=== PATIENT | male | born 1950 | race Caucasian/White ===

== ENCOUNTER 2017-10-29 18:02 | Inpatient (IN) | payer MEDICARE, MEDICAID ==
[2017-10-29] MEDS ORDERED: ONDANSETRON HCL IV 4 MG/2 ML VIAL IV ONE (18:12)
[2017-10-29] MEDS ORDERED: SODIUM CHLORIDE 0.9% 500 ML IV ONE (18:12)
--- NOTE | 2017-10-29 18:27 | Emergency Department Record ---
History of Present Illness - General Chief Complaint: Abdominal Pain Stated Complaint: DEHYDRATION/ABD PAIN Time Seen by Provider: 10/29/17 18:12 Source: Patient Mode of Arrival: EMS Limitations: No limitations - History of Present Illness Initial Comments: The patient is here due to AP for 4-5 days with abdominal distension. He has had nausea and did vomit twice a day ago. The patient denies any fever, chills, or dysuria but has had decreased urine output. The patient denies any hx of abdominal surgeries. MD Complaint: Abdominal pain Onset/Timin -: Days(s) Location: LUQ, RUQ, LLQ, RLQ Severity: Moderate Severity scale (1-10): 5 Quality: Aching Consistency: Constant Improves With: Nothing Worsens With: Nothing - Related Data Allergies Allergy/AdvReac Type Severity Reaction Status Date / Time No Known Drug Allergies Allergy Verified 10/29/17 18:14 Travel Screening - Travel/Exposure Within Last 30 Days Have you traveled within the last 30 days?: No - Travel/Exposure Within Last Year Have you traveled outside the [place] in the last year?: No - Additonal Travel Details Have you been exposed to anyone with a communicable illness?: No - Travel Symptoms Symptom Screening: None Review of Systems Constitutional: Denies: Chills, Fever Eyes: Denies: Eye discharge ENT: Denies: Congestion Respiratory: Denies: Cough, Dyspnea Cardiovascular: Denies: Arrhythmia Endocrine: Reports: Fatigue Gastrointestinal: Reports: Abdominal pain, Nausea, Vomiting. Denies: Diarrhea Genitourinary: Denies: Dysuria Musculoskeletal: Denies: Arthralgia, Back pain Skin: Denies: Bruising Past Medical History - SOCIAL HISTORY Smoking Status: Never smoker Alcohol Use: None Drug Use: None - RESPIRATORY Hx Respiratory Disorders: No - CARDIOVASCULAR Hx Hypertension: Yes - NEURO Hx Neuro Disorders: Yes Comment:: Surgery for brain abscess in 1976. - GI Comment:: Chronic constipation - Hx Genitourinary Disorders: No - ENDOCRINE Hx Endocrine Disorders: Yes Hx Diabetes: Yes (IDDM) Hx Thyroid Disease: Yes Comment:: Just started Levothyroxine on 01/10/14 - MUSCULOSKELETAL Hx Musculoskeletal Disorders: No - PSYCH Hx Psych Problems: No - HEMATOLOGY/ONCOLOGY Hx Hematology/Oncology Disorders: No Family Medical History Any Significant Family History?: Yes Hx Cancer: Father Hx Stroke: Mother Physical Exam - General General Appearance: Alert, Oriented x3, Cooperative, No acute distress - Head Head exam: Atraumatic, Normocephalic - ENT Throat exam: Normal inspection. negative: Tonsillar erythema, Tonsillar exudate - Neck Neck exam: Normal inspection, Full ROM. negative: Tenderness - Respiratory Respiratory exam: Normal lung sounds bilaterally. negative: Respiratory distress - Cardiovascular Cardiovascular Exam: Regular rate, Normal rhythm, Normal heart sounds - GI/Abdominal GI/Abdominal exam: Diminished bowel sounds, Distended, Tenderness. negative: Soft - Rectal Rectal exam: Heme (-) stool. negative: Decreased rectal tone, Fecal impaction - Extremities Extremities exam: Pedal edema. negative: Normal inspection - Neurological Neurological exam: Alert. negative: Motor sensory deficit Course Vital Signs 10/29/17 18:06 Temperature 98.2 F Pulse Rate 91 H Respiratory 16 Rate Blood Pressure 129/69 Pulse Ox 97 - Reevaluation(s) Reevaluation #1: The patient is doing a lot better at this time. His pain is much improved and he is no longer nauseated. He clearly had a bladder outlet obstruction and did have about 3000cc's of urine removed from the catheter. On exam his abdomen is much more soft and less distended but not quite back to normal. 10/29/17 20:10 Reevaluation #2: The patient is still doing better but is still mildly distended. He appears to have a colonic ileus on CT and a full rectum. I did discuss the issues with Dr. Morejon and he does accept the patient for admission for IV fluid therapy and further evaluation. 10/29/17 20:50 Medical Decision Making - Data Complexity MDM Data: Labs Ordered and/or Reviewed, X-Ray Ordered and/or Reviewed - Lab Data Result diagrams: 10/29/17 19:20 10/29/17 19:20 - Radiology Data Radiology results: Report reviewed (CT: Obstipation, O/W neg.) Disposition Disposition: Admit Clinical Impression: Renal failure Qualifiers: Renal failure chronicity: acute Acute renal failure type: unspecified Qualified Code(s): N17.9 - Acute kidney failure, unspecified Disposition: Still a Patient at [facility] Decision to Admit: Admit from ER Decision to Admit Date: 10/29/17 Decision to Admit Time: 20:51 Accepting Physician: Jean-Pierre Time Discussed w/Accepting Physician: 20:51 Condition: (2) Stable Forms: Patient Portal Access Time of Disposition: 20:51 Quality - Quality Measures Quality Measures: N/A - Blood Pressure Screening View Details: Yes Does Patient Have Any of the Following: No Blood Pressure Classification: Pre-Hypertensive BP Reading Systolic Measurement: 129 Diastolic Measurement: 69 Screening for High Blood Pressure: < Pre-Hypertensive BP, F/U Documented > [ [id number]] Pre-Hypertensive Follow-up Interventions: Referral to alternative/primary care provider.
[2017-10-29 19:27] LABS: HEMATOCRIT 35.1 % (42.0-52.0); HEMOGLOBIN 11.1 gm/dl (14.0-18.0); MEAN CELL VOLUME 94.4 fl (81-97); MEAN CORPUSCULAR HEMOGLOBIN 29.8 pg (27-33); MEAN CORPUSCULAR HGB CONC 31.6 g/dl (32-36); MEAN PLATELET VOLUME 10.8 fl (7.4-10.4); PLATELET COUNT 167 K/uL (130-400); RED BLOOD COUNT 3.72 M/uL (4.40-5.70); RED CELL DISTRIBUTION WIDTH 12.9 % (11.5-14.5); WHITE BLOOD COUNT W/O DIFF 13.1 K/uL (4.2-12.2)
[2017-10-29 19:28] LABS: URINE APPEARANCE CLEAR; URINE BILIRUBIN NEGATIVE (NEGATIVE); URINE BLOOD NEGATIVE (NEGATIVE); URINE COLOR YELLOW; URINE KETONE NEGATIVE (NEGATIVE); URINE LEUKOCYTE ESTERASE NEGATIVE (NEGATIVE); URINE NITRITE NEGATIVE (NEGATIVE); URINE PROTEIN NEGATIVE (NEGATIVE); URINE UROBILINOGEN 0.2 E.U./dL (0.20 - 1.00)
[2017-10-29 19:40] LABS: BLOOD UREA NITROGEN 41 mg/dL (8-23); CREATININE 1.7 mg/dL (0.7-1.2); EST GLOMERULAR FILTRATION RATE 43 mL/min
[2017-10-29 19:41] LABS: TOTAL PROTEIN 6.4 g/dL (6.6-8.7)
[2017-10-29 19:43] LABS: GLUCOSE,RANDOM 155 mg/dL (74-109)
[2017-10-29 19:45] LABS: ALT/SGPT 22 U/L (<41); AST/SGOT 24 U/L (10.0-50.0)
[2017-10-29 19:46] LABS: ALKALINE PHOSPHATASE 87 U/L (40-129); BILIRUBIN,DIRECT < 0.2 mg/dL (0-0.3); LIPASE 8 U/L (13-60)
[2017-10-29] MEDS ORDERED: MAGNESIUM CITRATE 296 ML BTL PO ONE (20:43)
[2017-10-29] MEDS ORDERED: ONDANSETRON HCL IV 4 MG/2 ML VIAL IVP PRN (22:32)
[2017-10-29] MEDS ORDERED: 0.9 % SODIUM CHLORIDE 1000ML 1,000 ML IV PRN (22:32)
[2017-10-29] MEDS ORDERED: NOVOLOG FLEXPEN (INSULIN ASPART) 100 UNITS/ML SQ SCH (22:32)
[2017-10-29] MEDS: ASPIRIN 81 MG TABEC PO SCH (23:38)
[2017-10-30 06:21] LABS: HEMATOCRIT 32.7 % (42.0-52.0); HEMOGLOBIN 10.6 gm/dl (14.0-18.0); MEAN CELL VOLUME 94.8 fl (81-97); MEAN CORPUSCULAR HEMOGLOBIN 30.7 pg (27-33); MEAN CORPUSCULAR HGB CONC 32.4 g/dl (32-36); MEAN PLATELET VOLUME 11.7 fl (7.4-10.4); PLATELET COUNT 146 K/uL (130-400); RED BLOOD COUNT 3.45 M/uL (4.40-5.70); RED CELL DISTRIBUTION WIDTH 12.7 % (11.5-14.5); WHITE BLOOD COUNT W/O DIFF 12.3 K/uL (4.2-12.2)
[2017-10-30 06:39] LABS: CREATININE 1.4 mg/dL (0.7-1.2)
[2017-10-30] MEDS: LEVOTHYROXINE SODIUM 25 MCG TABLET PO SCH (06:42)
[2017-10-30] MEDS ORDERED: NOVOLOG FLEXPEN (INSULIN ASPART) 100 UNITS/ML SQ SCH (08:00)
[2017-10-30] MEDS ORDERED: MAGNESIUM CITRATE 296 ML BTL PO ONE (09:00)
--- NOTE | 2017-10-30 09:14 | History & Physical ---
History of Present Illness - Date of Service Date of Service for History & Physical: 10/30/17 - History of Present Illness Admitting Diagnosis: 1. Acute Renal Failure with Bladder Outlet Obstruction. History of Present Illness: Mr. Guerrero is a 66 y/o diabetic patient who presented with complaint of abdominal pain, distension and difficulty having a bowel movement for 1 week. The patient says that he usually uses the rest room daily but over the past few days and his abdomen became increasingly painful. He also has a history of urinary retention but denies any symptoms of pain or burning. The patient is blind and lives with his elderly mother but says that he his somewhat independent but gets help from his younger brother who also lives there. He is a poor historian and his On arrival to the ED a CT of the abdomen was done which revealed large amount of fecal matter but no other acute process. The patient was straight catheterized in the ED and 3 liters of urine was obtained. No fecal occult blood was noted and urinalysis was negative for infection. Travel Screening - Travel/Exposure Within Last 30 Days Have you traveled within the last 30 days?: No - Travel/Exposure Within Last Year Have you traveled outside the [place] in the last year?: No - Additonal Travel Details Have you been exposed to anyone with a communicable illness?: No - Travel Symptoms Symptom Screening: None Review of Systems Constitutional: Denies: Chills, Fever Eyes: Denies: Eye discharge ENT: Denies: Congestion Respiratory: Denies: Cough, Dyspnea Cardiovascular: Denies: Arrhythmia Endocrine: Reports: Fatigue Gastrointestinal: Reports: Abdominal pain, Nausea, Vomiting. Denies: Diarrhea Genitourinary: Denies: Dysuria Musculoskeletal: Denies: Arthralgia, Back pain Skin: Denies: Bruising Past Medical History - SOCIAL HISTORY Smoking Status: Never smoker Alcohol Use: None Drug Use: None - RESPIRATORY Hx Respiratory Disorders: No - CARDIOVASCULAR Hx Abnormal EKG: No Hx Cardiac Cath: No Hx Chest Pain: No Hx CHF: No Hx Deep Vein Thrombosis: No Hx Edema: No Hx Heart Attack: No Hx Hypertension: Yes Hx Hypotension: No Hx Irregular Heartbeat: No Hx Palpitations: No Hx Pacemaker/Defib: No Hx Vascular Disease: No - NEURO Hx Neuro Disorders: Yes Hx Brain Tumor: Yes (abscess) Hx CVA: No Hx Dementia: No Hx Dizziness: Yes Hx Headaches: Yes Hx Neuropathy: No Hx Parkinson's Disease: No Hx Seizures: No Hx Speech Problem: No Hx TIA: No Comment:: Surgery for brain abscess in 1976. - GI Hx GI Disorders: Yes Hx Abdominal Pain: No Hx Celiac Disease: No Hx Crohn's Disease: No Hx Diverticulitis: No Hx GI Bleed: No Hx Reflux: No Hx Hepatitis/Jaundice: No Hx Hiatal Hernia: No Hx Irritable Bowel: No Hx Liver Disease: No Hx Nausea/Vomiting: No Hx Obstructive Bowel: No Hx Pancreatitis: No Hx Rectal Bleeding: No Hx Ulcer: No Hx Wt Loss/Wt Gain: No Hx of Polyps: No Comment:: Chronic constipation - Hx Genitourinary Disorders: Yes Hx Bladder Problem: Yes Hx Dialysis: No Hx Kidney Stones: No Hx Prostate Problems: Yes - ENDOCRINE Hx Endocrine Disorders: Yes Hx Diabetes: Yes (IDDM) Hx Thyroid Disease: Yes Comment:: Just started Levothyroxine on 01/10/14 - MUSCULOSKELETAL Hx Musculoskeletal Disorders: No - PSYCH Hx Psych Problems: No - HEMATOLOGY/ONCOLOGY Hx Hematology/Oncology Disorders: No Family Medical History Any Significant Family History?: Yes Hx Cancer: Father Hx Stroke: Mother H&P Meds/Allergies - Allergies Allergies: Allergies Allergy/AdvReac Type Severity Reaction Status Date / Time No Known Drug Allergies Allergy Verified 10/29/17 18:14 - Active Medications Active Medications: Current Medications Amlodipine Besylate (Norvasc) 5 mg PO DAILY [facility] Aspirin (Ecotrin (Ec)) 81 mg PO QHS [facility] Last Admin: 10/29/17 23:38 Dose: 81 mg Sodium Chloride () 1,000 mls @ 100 mls/hr IV .Q10H PRN PRN Reason: LARGE VOLUME IV Insulin Aspart (Novolog Flexpen) 6 unit SQ WMEALS [facility] Last Admin: 10/30/17 08:56 Dose: Not Given Insulin Detemir (Levemir Flextouch) 9 unit SQ BID [facility] Levothyroxine Sodium (Synthroid) 25 mcg PO DAILYTHY [facility] Last Admin: 10/30/17 06:42 Dose: 25 mcg Lisinopril (Zestril) 20 mg PO DAILY [facility] Non-Formulary Medication (Dutasteride [Avodart]) 0.5 mg PO QAM [facility] Ondansetron HCl (Zofran) 4 mg IVP Q4H PRN PRN Reason: NAUSEA Pantoprazole Sodium (Protonix Iv) 40 mg IV DAILY [facility] Tamsulosin HCl (Flomax) 0.4 mg PO DAILY [facility] Physical Exam - Vital Signs Vital Signs: Vital Signs - Last 24 Hrs Temp Pulse Pulse Resp BP BP BP 10/30/17 05:30 98.3 F 90 20 128/64 10/30/17 00:08 99.0 F 86 20 130/65 10/29/17 21:45 99.3 F 99 H 94 H 20 107/97 134/76 10/29/17 20:08 91 H 20 129/61 10/29/17 18:06 98.2 F 91 H 16 129/69 Pulse Ox 10/30/17 05:30 92 L 10/30/17 00:08 95 10/29/17 21:45 94 L 10/29/17 20:08 97 10/29/17 18:06 97 - General General Appearance: Alert, Oriented x3, Cooperative, No acute distress Limitations: No limitations - Head Head exam: Atraumatic, Normocephalic - ENT Throat exam: Normal inspection. negative: Tonsillar erythema, Tonsillar exudate - Neck Neck exam: Normal inspection, Full ROM. negative: Tenderness - Respiratory Respiratory exam: Normal lung sounds bilaterally. negative: Respiratory distress - Cardiovascular Cardiovascular Exam: Regular rate, Normal rhythm, Normal heart sounds - GI/Abdominal GI/Abdominal exam: Diminished bowel sounds, Distended, Tenderness. negative: Soft - Rectal Rectal exam: Heme (-) stool. negative: Decreased rectal tone, Fecal impaction - Extremities Extremities exam: Pedal edema. negative: Normal inspection - Neurological Neurological exam: Alert. negative: Motor sensory deficit Results - Labs Result Diagrams: 10/30/17 06:00 10/30/17 06:00 Labs Last 24 Hours: Laboratory Results - last 24 hr 10/29/17 10/29/17 10/29/17 19:20 19:20 19:20 WBC 13.1 H RBC 3.72 L Hgb 11.1 L Hct 35.1 L MCV 94.4 MCH 29.8 MCHC 31.6 L RDW 12.9 Plt Count 167 MPV 10.8 H Neutrophils % 64.0 Band Neutrophils % 0.0 Eosinophils % Not Reportable Basophils % Not Reportable Lymphocytes 6.0 L Monocytes 30.0 H Basophils 0.0 Eosinophil Count 0.0 Sodium 138 Potassium 4.3 Chloride 99 Carbon Dioxide 26.0 Anion Gap 13.0 BUN 41 H Creatinine 1.7 H Estimated GFR 43 POC Glucose Random Glucose 155 H Calcium 9.0 Total Bilirubin 0.30 Direct Bilirubin < 0.2 AST 24 ALT 22 Alkaline Phosphatase 87 Total Protein 6.4 L Albumin 4.0 Lipase 8 L TSH Urine Color Yellow Urine Appearance Clear Urine pH 6.0 Ur Specific [place] 1.020 Urine Protein Negative Urine Glucose (UA) 500 mg/dl H Urine Ketones Negative Urine Blood Negative Urine Nitrite Negative Urine Bilirubin Negative Urine Urobilinogen 0.2 Ur Leukocyte Esterase Negative 10/29/17 10/29/17 10/30/17 19:20 23:30 06:00 WBC 12.3 H RBC 3.45 L Hgb 10.6 L Hct 32.7 L MCV 94.8 MCH 30.7 MCHC 32.4 RDW 12.7 Plt Count 146 MPV 11.7 H Neutrophils % 54.0 Band Neutrophils % 0.0 Eosinophils % Not Reportable Basophils % Not Reportable Lymphocytes 8.0 L Monocytes 38.0 H Basophils 0.0 Eosinophil Count 0.0 Sodium Potassium Chloride Carbon Dioxide Anion Gap BUN Creatinine Estimated GFR POC Glucose 75 Random Glucose Calcium Total Bilirubin Direct Bilirubin AST ALT Alkaline Phosphatase Total Protein Albumin Lipase TSH 0.87 Urine Color Urine Appearance Urine pH Ur Specific [place] Urine Protein Urine Glucose (UA) Urine Ketones Urine Blood Urine Nitrite Urine Bilirubin Urine Urobilinogen Ur Leukocyte Esterase 10/30/17 06:00 WBC RBC Hgb Hct MCV MCH MCHC RDW Plt Count MPV Neutrophils % Band Neutrophils % Eosinophils % Basophils % Lymphocytes Monocytes Basophils Eosinophil Count Sodium 139 Potassium 3.6 Chloride 99 Carbon Dioxide 29.0 Anion Gap 11.0 BUN 37 H Creatinine 1.4 H Estimated GFR 54 POC Glucose Random Glucose 170 H Calcium 8.4 L Total Bilirubin Direct Bilirubin AST ALT Alkaline Phosphatase Total Protein Albumin Lipase TSH Urine Color Urine Appearance Urine pH Ur Specific [place] Urine Protein Urine Glucose (UA) Urine Ketones Urine Blood Urine Nitrite Urine Bilirubin Urine Urobilinogen Ur Leukocyte Esterase VTE H&P Assessment - Risk for VTE Risk for VTE: Yes Risk Level: Low Risk Assessment Date: 10/30/17 Risk Assessment Time: 09:16 VTE Orders Placed or Will Be Placed: Yes Plan - Inpatient Certification Inpatient Certification: Admit to inpatient care: Based on my medical assessment, after consideration of patient's risk factors (age, co-morbidities and patient presenting symptoms and acuity), I expect that this patient will remain in the hospital greater than or equal to two midnights and that the services needed warrant inpatient care because: Patient Risk Factors: Bladder obstruction. Ileus Estimated length of stay: 2-3 days The patient may reasonably be expected to be discharged or transferred to a hospital within 96 hours after admission to [facility]. Services needed: [] Post hospital care (if known): Urology, PCP I certify that my determination is in accordance with my understanding of Medicare requirements for reasonable and necessary inpatient services. 10/30/17 09:18 - Detailed Diagnosis and Plan (1) Bladder outflow obstruction Current Visit: Yes Status: Acute Base Code: N32.0 - BLADDER-NECK OBSTRUCTION Comment: 10/30/17: - abdominal distesntion/pain, UA: negative - maintain snider catheter, I/Os, trial of void after catheter removed. - resume Flomax 0.4mg daily for BPH (2) Ileus Current Visit: Yes Status: Acute Base Code: K56.7 - ILEUS, UNSPECIFIED Comment: 10/30/17: - abdominal distension and pain due to constipation. Fecal occult negative. - Ct abdomen: large amount of fecal matter, - IV fluids: Nacl 0.9% @ 75mL/hr, Mg citrate PRN. (3) Acute on chronic renal insufficiency Current Visit: Yes Status: Acute Base Code: N28.9 - DISORDER OF KIDNEY AND URETER, UNSPECIFIED; N18.9 - CHRONIC KIDNEY DISEASE, UNSPECIFIED Comment: 10/30/17: - bun/Cr 41/1.7 --> 37/1.4, likely due to bladder obstruction. - repeat electrolytes in the morning. - avoid nephrotoxic medeications. (4) Diabetes mellitus, type II Current Visit: Yes Status: Acute Base Code: E11.9 - TYPE 2 DIABETES MELLITUS WITHOUT COMPLICATIONS Comment: 10/30/17: - at home Lantus 9 units QHS, Novolog 6 units TIDAC, Lisinopril 20mg, ASA 81. Lantus 5 units, sliding scale insulin low dose. - check Hba1c and lipids with morning labs. - ADA diet, POC glucose AcHs. (5) HTN, goal below 140/80 Current Visit: Yes Status: Acute Base Code: I10 - ESSENTIAL (PRIMARY) HYPERTENSION Comment: 10/30/17: - BP at goal of < 140/80 - resume norvasc 5mg and Lisinopril 20mg daily. 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 (7) DVT prophylaxis Current Visit: Yes Status: Acute Base Code: [id number] - Comment: 10/30/17: - SCDs while in bed. - ambulation with assistance due to blindess. (8) Full code status Current Visit: Yes Status: Acute Base Code: Z78.9 - OTHER SPECIFIED HEALTH STATUS Comment: 10/30/17: - FULL CODE
[2017-10-30] MEDS: PANTOPRAZOLE SODIUM IV 40 MG VIAL IV SCH (09:56)
[2017-10-30] MEDS: AMLODIPINE BESYLATE 5MG TAB PO SCH (09:56)
[2017-10-30] MEDS: LISINOPRIL 20 MG TABLET PO SCH (09:56)
[2017-10-30] MEDS: TAMSULOSIN HCL 0.4 MG CAP.ER.24H PO SCH (09:56)
[2017-10-30] MEDS: LEVEMIR FLEXTOUCH 100 UNIT/ML INSULIN PEN SQ SCH ×2 (10:03→22:10)
[2017-10-30] MEDS: NOVOLOG FLEXPEN (INSULIN ASPART) 100 UNITS/ML SQ SCH ×2 (13:38→17:39)
[2017-10-30] MEDS ORDERED: 0.9 % SODIUM CHLORIDE 1000ML 1,000 ML IV PRN (19:14)
[2017-10-30] MEDS ORDERED: 0.9 % SODIUM CHLORIDE 1000ML 1,000 ML IV SCH (19:15)
[2017-10-30] MEDS: ASPIRIN 81 MG TABEC PO SCH (22:10)
[2017-10-31] MEDS: LEVOTHYROXINE SODIUM 25 MCG TABLET PO SCH (06:58)
[2017-10-31 07:22] LABS: HEMATOCRIT 32.7 % (42.0-52.0); HEMOGLOBIN 10.4 gm/dl (14.0-18.0); MEAN CELL VOLUME 95.3 fl (81-97); MEAN CORPUSCULAR HEMOGLOBIN 30.3 pg (27-33); MEAN CORPUSCULAR HGB CONC 31.8 g/dl (32-36); MEAN PLATELET VOLUME 11.5 fl (7.4-10.4); PLATELET COUNT 146 K/uL (130-400); RED BLOOD COUNT 3.43 M/uL (4.40-5.70); RED CELL DISTRIBUTION WIDTH 12.6 % (11.5-14.5); WHITE BLOOD COUNT W/O DIFF 10.6 K/uL (4.2-12.2)
[2017-10-31 07:36] LABS: BLOOD UREA NITROGEN 31 mg/dL (8-23); CREATININE 1.1 mg/dL (0.7-1.2); EST GLOMERULAR FILTRATION RATE > 60 mL/min; GLUCOSE,RANDOM 105 mg/dL (74-109)
--- NOTE | 2017-10-31 08:21 | CT SCAN REPORT ---
EXAM: EMERGENCY CT OF THE ABDOMEN AND PELVIS WITHOUT CONTRAST HISTORY: LOWER ABDOMINAL PAIN AND VOMITING FOR A WEEK, GENERALIZED WEAKNESS DEHYDRATION. TECHNIQUE: Axial CT scan of the abdomen and pelvis was performed without oral or IV contrast at the referring physician's request. Comparison: No prior CT of the abdomen or pelvis with which to compare. FINDINGS: There is some mild bibasilar streaky atelectasis or infiltrate. Prominent coronary artery calcification is evident. Mild dilatation of the lower esophagus, nonspecific. Borderline aneurysmal dilatation of the ascending aorta measuring up to about 4 cm in diameter. No pericardial effusion evident. The patient's arms are placed over the abdomen which creates considerable artifact limiting interpretation. There are questionably some tiny gallstones that are relatively noncalcified in the dependent portion of the gallbladder. No convincing evidence of acute cholecystitis, but if clinically warranted this could be further assessed with a gallbladder ultrasound. There are some central renal calcifications in the bilaterally. These are probably all renal arterial in nature with the possibility of these representing nonobstructing intrarenal calculi felt to be less likely. On this initial set of images the apparatus engineering technologist has not submitted images below the level of the mid pelvis. Apparently there are additional images obtained, but were not sent and once viewed, an addendum comparison report will be provided. At the time of this interpretation, the ureters can only be followed to the level of the mid pelvis. Slight prominence in caliber of both ureters, but no ureteral calculus seen in the visualized portion of the ureters. Evaluation of the bowel and viscera is extremely limited without oral or IV contrast. Given this limitation, no definite hepatic, splenic, adrenal, pancreatic, or renal mass identified. Calcification of the abdominal aorta, but no aneurysm evident. There is a large amount of stool in the visualized upper rectum and clinical correlation as to fecal impaction suggested. The tip of the cecum is not included on these images. Much of the colon is mildly distended by a combination of stool and air. The small bowel is relatively nondistended. No free intraperitoneal air or free intra peritoneal fluid evident. There is a small periumbilical anterior abdominal wall hernia containing adipose tissue, but no bowel. Small calcification in the subcutaneous tissues of the anterior abdominal wall may be the site of prior medicine injections, with small soft tissue densities in association with these calcifications as well. IMPRESSION: 1. LOWER PELVIS NOT INCLUDED ON THESE IMAGES, BUT THE BUSINESS OBJECTS REPORT DEVELOPER CONFIRMS THAT THERE ARE ADDITIONAL AXIAL IMAGES INCLUDING THE PELVIS THAT DID NOT GET SENT ACROSS FOR INTERPRETATION. ONCE OBTAINED, AN ADDENDUM REPORT WILL BE PROVIDED. 2. PROMINENT STOOL IN THE VISUALIZED UPPER RECTUM AND CLINICAL CORRELATION TO FECAL IMPACTION IS SUGGESTED. MODERATE DISTENTION OF THE COLON ELSEWHERE BY A COMBINATION OF STOOL AND AIR. RELATIVELY NONDISTENDED SMALL BOWEL. 3. 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 4. CORONARY ARTERY CALCIFICATION. 5. MILD DILATATION OF THE LOWER ESOPHAGUS. 6. CENTRAL RENAL CALCIFICATIONS PROBABLY RENAL ARTERIAL IN NATURE. 7. SMALL PERIUMBILICAL ANTERIOR ABDOMINAL WALL HERNIA CONTAINING ADIPOSE TISSUE , BUT NO BOWEL. ADDENDUM: The apparatus engineering technologist has now made available additional axial scans through the lower pelvis. These demonstrate prominent distention of the rectum with stool with the rectum measuring up to approximately 8.6 cm in transverse x 10.6 cm in AP diameter. Slight thickening of the rectal wall as well and the possibility of a developing stercoral colitis cannot be excluded. There is a Orr catheter in place within the urinary bladder. The bladder also has a thick walled appearance, but this may simply be due to incomplete distention. The cecum tip is now seen. The appendix is not well demonstrated without oral or IV contrast, but no appendicitis evident. JOB NUMBER: [id number] [facility]
--- NOTE | 2017-10-31 08:27 | CT SCAN REPORT ---
EXAM: CT OF THE BRAIN WITHOUT CONTRAST HISTORY: MENTAL STATUS CHANGE. TECHNIQUE: Sequential axial images were obtained from the foramen magnum to the vertex without contrast administration. Comparison: 2009. FINDINGS: The brain volume is normal. Large calcified right frontal parietal extraaxial lesion. There is at the site of patient's previous brain abscess. There is ventriculomegaly similar in appearance when compared to previous exams. There is encephalomalacia surrounding the large right extraaxial frontal parietal lesion. There is prosthetic left globe. There is radiopaque density in the right posterior globe. This may represent a foreign body. IMPRESSION: 1. LARGE CALCIFIED EXTRAAXIAL LESION IN THE RIGHT FRONTAL PARIETAL REGION. THIS MEASURES 6.2 X 2.8 CM. THERE IS SURROUNDING ENCEPHALOMALACIA. 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 2. VENTRICULOMEGALY. 3. PROSTHETIC LEFT GLOBE. PROBABLE RADIOPAQUE FOREIGN BODY IN THE RIGHT GLOBE. JOB NUMBER: [id number] MTDD
[2017-10-31] MEDS: NOVOLOG FLEXPEN (INSULIN ASPART) 100 UNITS/ML SQ SCH ×3 (09:22→19:10)
[2017-10-31] MEDS: TAMSULOSIN HCL 0.4 MG CAP.ER.24H PO SCH (10:58)
[2017-10-31] MEDS: PANTOPRAZOLE SODIUM IV 40 MG VIAL IV SCH (10:59)
[2017-10-31] MEDS: AMLODIPINE BESYLATE 5MG TAB PO SCH (10:59)
[2017-10-31] MEDS: LISINOPRIL 20 MG TABLET PO SCH (11:00)
[2017-10-31] MEDS: LEVEMIR FLEXTOUCH 100 UNIT/ML INSULIN PEN SQ SCH ×2 (11:09→22:59)
[2017-10-31] MEDS: DUTASTERIDE 0.5 MG PO SCH (12:44)
--- NOTE | 2017-10-31 15:32 | Rehab Evaluation ---
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 Eye surgery, T&A. PMH - Respiratory Hx Respiratory Disorders No PMH - Cardiovascular Hx Abnormal EKG No Hx Cardiac Catheterization No Hx Chest Pain No Hx Congestive Heart Failure No Hx Deep Vein Thrombosis No Hx Edema No Hx Heart Attack No Hx Hypertension Yes Hx Hypotension No Hx Irregular Heartbeat No Hx Palpitations No Hx Pacemaker/Defibrillator No Hx Vascular Disease No Hx Transient Ischemic Attacks No (TIA) PMH - Neuro Hx Neurological Disorders Yes Hx Brain Tumor Yes: abscess Hx Cerebrovascular Accident No Hx Dementia No Hx Dizziness Yes Hx Headaches Yes Hx Neuropathy No Hx Parkinson's Disease No Hx Seizures No Hx Speech Problem No Hx Syncope No Hx Transient Ischemic Attacks No (TIA) Comment: Surgery for brain abscess in 1976. PMH - GI Hx Gastrointestinal Disorders Yes Hx Abdominal Pain No Hx Celiac Disease No Hx Crohn's Disease No Hx Diverticulitis No Hx Gastrointestinal Bleed No Hx Gastroesophageal Reflux No Hx Hepatitis/Jaundice No Hx Hiatal Hernia No Hx Irritable Bowel No Hx Liver Disease No Hx Nausea/Vomiting No Hx Obstructive Bowel No Hx Pancreatitis No Hx Rectal Bleeding No Hx Ulcer No Hx Weight Loss/Weight Gain No Comment: Chronic constipation PMH - Hx Genitourinary Disorders Yes Hx Bladder Problem Yes Hx Dialysis No Hx Kidney Stones No Hx Prostate Problems Yes PMH - Endocrine Hx Endocrine Disorders Yes Hx Diabetes Yes: IDDM Hx Thyroid Disease Yes Comment: Just started Levothyroxine on 01/10/14 PMH - Musculoskeletal Hx Musculoskeletal Disorders No PMH - Psych Hx Psychiatric Problems No PMH - Hematology/Oncology Hx Hematology/Oncology No Disorders Premorbid Status: Detail (The patient reports he was ambulating in his house without assistive device and using a cane to assist with ambulation when in the community. Home Health aides were asssisting with housework including laundry. The patient reported he used the microwave at times for cooking. The patient stated he was independent with ADL's.) Social History: Detail (The patient lives with his mother in a 2 story house with basement with a ramp at the enterance. The patient lives primarily on the first floor. The patient's bathroom is equipped with tub/shower combination with no grab bars and a elevated toilet with grab bars. The patient stands to take a shower. The patient has no assistive devices except for a cane.) Precautions: [place], Fall - Time With Patient Total Time Spent With Patient (Min): 30 Treatment Procedures: Detail (Initial Evaluation) Subjective Information - Subjective Information Per Patient (The patient complained of abdominal pain which he rated as 3-4 at the highest.) Objective Data - Mental Status Patient Orientation: Person, Place, Time (The patient knew birthdate but not age. Patient did not know current month, however the patient uses a speaking watch to indentify current date.) - Visual Perception Deficit (The patient is blind.) - ROM Within normal limits (The patient's bilateral LE AROM is WNL.) - Strength/Tone Not within normal limits (The patient's bilateral hip strength was generally 4/5 , knee musculature 5/5 knee extensors, 4+/5 knee flexors, ankle musculature 5/5. ) - Bed Mobility Needs Assist (Not assessed the patient was in a recliner.) - Transfers Independent (The patient was independent with sit to and from stand tranfers with verbal and tactile cues to reach for walker.) - Balance Balance Sitting: Good Balance Standing: Fair - Gait Detail (The patient ambulated with front wheeled walker and 2 L of of O2 with CG of 1 and assist to steer walker a distance of 22 feet x 1. The patient had shortness of breath following ambulation.) Therapy Assessment - Therapy Assessment Detail (The patient did well with mobility despite visual deficit. The patient does exhibit decreased ability to complete prolonged physical activity. Feel the patient is a good subacute rehab candidate to return to previous functional level.) Problem List - Problem List Physical Therapy Problem List: Detail (1) Decreased ability to complete prolonged physical activity 2) Decreased LE strength 3) Assistance with ambulation) Goals - Goals Physical Therapy Goals: 1) Evaluate bed mobility. 2) Increased LE strength 1/3 muscle grade to improve overall functional mobility. 3) The patient will ambulate with appropriate assistive device distances of 100 feet plus with minimal shortness of breath. 4) The patient will tolerate 30 minutes of physical activity with one rest period. 5) The patient will be independent with bed mobility and transfers. Prognosis - Prognosis Good Plan - Plan Physical Therapy Plan: PT 1 time a day for gait training, transfer training, bed mobility, LE strengthening and endurance exercises.
--- NOTE | 2017-10-31 15:58 | Rehab Evaluation ---
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 Eye surgery, T&A. PMH - Respiratory Hx Respiratory Disorders No PMH - Cardiovascular Hx Abnormal EKG No Hx Cardiac Catheterization No Hx Chest Pain No Hx Congestive Heart Failure No Hx Deep Vein Thrombosis No Hx Edema No Hx Heart Attack No Hx Hypertension Yes Hx Hypotension No Hx Irregular Heartbeat No Hx Palpitations No Hx Pacemaker/Defibrillator No Hx Vascular Disease No Hx Transient Ischemic Attacks No (TIA) PMH - Neuro Hx Neurological Disorders Yes Hx Brain Tumor Yes: abscess Hx Cerebrovascular Accident No Hx Dementia No Hx Dizziness Yes Hx Headaches Yes Hx Neuropathy No Hx Parkinson's Disease No Hx Seizures No Hx Speech Problem No Hx Syncope No Hx Transient Ischemic Attacks No (TIA) Comment: Surgery for brain abscess in 1976. PMH - GI Hx Gastrointestinal Disorders Yes Hx Abdominal Pain No Hx Celiac Disease No Hx Crohn's Disease No Hx Diverticulitis No Hx Gastrointestinal Bleed No Hx Gastroesophageal Reflux No Hx Hepatitis/Jaundice No Hx Hiatal Hernia No Hx Irritable Bowel No Hx Liver Disease No Hx Nausea/Vomiting No Hx Obstructive Bowel No Hx Pancreatitis No Hx Rectal Bleeding No Hx Ulcer No Hx Weight Loss/Weight Gain No Comment: Chronic constipation PMH - Hx Genitourinary Disorders Yes Hx Bladder Problem Yes Hx Dialysis No Hx Kidney Stones No Hx Prostate Problems Yes PMH - Endocrine Hx Endocrine Disorders Yes Hx Diabetes Yes: IDDM Hx Thyroid Disease Yes Comment: Just started Levothyroxine on 01/10/14 PMH - Musculoskeletal Hx Musculoskeletal Disorders No PMH - Psych Hx Psychiatric Problems No PMH - Hematology/Oncology Hx Hematology/Oncology No Disorders Premorbid Status: Detail (The patient reports he was ambulating in his house without an assistive device and using a cane to assist with ambulation when in the community due to visual impairment. Home Health aides were assisting with housework including laundry. The patient reported he used the microwave at times for cooking. The patient stated he was independent with ADL's including showering and dressing.) Social History: Detail (The patient lives with his mother in a 2 story house with basement with a ramp at the entrance. The patient lives primarily on the first floor. The patient's bathroom is equipped with tub/shower combination with no grab bars and a elevated toilet with grab bars. The patient stands to take a shower. The patient has no assistive devices except for a cane.) Precautions: [place], Fall, Other (Legally blind) - Time With Patient Total Time Spent With Patient (Min): 30 Treatment Procedures: Detail (OT eval low complexity) Subjective Information - Subjective Information Per Patient Objective Data - Pain Pain Present: Yes (3-4/10 belly pain) - Mental Status Patient Orientation: Oriented x3 (Oriented to self, birthday, location, states age as "67", uses auditory watch for date/time information due to being blind.) - Visual Perception Deficit (Pt is blind.) - ROM Within normal limits (Obey UE AROM WNL) - Strength/Tone Within normal limits (Obey UE strength 4+/5 although he become short of breath with any activity) - Coordination Appears within normal limits for therapeutic activities - Transfers Independent (Pt able to perform sit to stand from recliner with CG assist and verbal cues.) - Balance Balance Sitting: Good Balance Standing: Fair - Sensation Intact - Gait Detail (Pt ambulated several feet to the hallway with 2 wheeled walker and assist to manuever walker due to visual impairment.) - ADL's/IADL's Detail (Not assessed at this time as pt very fatigued.) Therapy Assessment - Therapy Assessment Detail (Pt presents with decreased endurance needed for safe and Ind ADLs.) Problem List - Problem List Occupational Therapy Problem List: Detail (1. Decreased endurance needed for safe and Ind mobility and ADLs.) Goals - Goals Occupational Therapy Goals: 1. Pt will improve overall endurance to allow safe and Ind self cares and functional mobility. Prognosis - Prognosis Good Plan - Plan Occupational Therapy Plan: OT 2-4 days per week to address endurance and ADLs.
--- NOTE | 2017-10-31 21:04 | Physician Progress Note ---
Subjective - Date Date of Physician Progress Note: 10/31/17 - Subjective Subjective Comment: Patient is alert, awake and has no new complaints. He says that he has had bowel movements throughout the day and has not had any abdominal pain. Objective - Vital Signs Vital Signs: Vital Signs - Last 24 Hrs Temp Pulse Pulse Resp BP Pulse Ox 10/31/17 14:00 100.3 F H 80 16 133/57 91 L 10/31/17 09:00 74 18 10/31/17 07:59 98.8 F 73 18 147/68 94 L 10/31/17 06:00 99.4 F 76 20 126/70 97 10/30/17 23:59 98.1 F 75 18 126/65 94 L - General General Appearance: Alert, Oriented x3, Cooperative, No acute distress Limitations: No limitations - Head Head exam: Atraumatic, Normocephalic - ENT Throat exam: Normal inspection. negative: Tonsillar erythema, Tonsillar exudate - Neck Neck exam: Normal inspection, Full ROM. negative: Tenderness - Respiratory Respiratory exam: Normal lung sounds bilaterally. negative: Respiratory distress - Cardiovascular Cardiovascular Exam: Regular rate, Normal rhythm, Normal heart sounds Peripheral Pulses: 3+: Radial (R), Radial (L) - GI/Abdominal GI/Abdominal exam: Normal bowel sounds, Distended. negative: Soft - Rectal Rectal exam: Heme (-) stool. negative: Decreased rectal tone, Fecal impaction - Extremities Extremities exam: Pedal edema. negative: Normal inspection - Neurological Neurological exam: Alert. negative: Motor sensory deficit Assessment and Plan - Assessment and Plan (1) Physical deconditioning Current Visit: Yes Status: Acute Base Code: R53.81 - OTHER [place] Comment : 10/31/17: - limited mobility at home due to visual impairment. - fall precautions, assist with toileting and ambulation. - pt to PT/OT evaluation for possible sub-acute reha placement. (2) Bladder outflow obstruction Current Visit: Yes Status: Acute Base Code: N32.0 - BLADDER-NECK OBSTRUCTION Comment: 10/31/17: - abdominal distesntion/pain, UA: negative - d/c snider catheter, trial of void after catheter removed today. - resume Flomax 0.4mg daily for BPH (3) Ileus Current Visit: Yes Status: Acute Base Code: K56.7 - ILEUS, UNSPECIFIED Comment: 10/31/17: - +bowel sounds on auscultation. Several bowel movements after Mg citrate. - advance diet with soft then full diet if tolerated for dinner. - IV fluids: Nacl 0.9% @ 75mL/hr, Mg citrate PRN. (4) Acute on chronic renal insufficiency Current Visit: Yes Status: Acute Base Code: N28.9 - DISORDER OF KIDNEY AND URETER, UNSPECIFIED; N18.9 - CHRONIC KIDNEY DISEASE, UNSPECIFIED Comment: 10/31/17: resolving - bun/Cr 41/1.7 --> 37/1.4, --> 31/1.1 - repeat electrolytes in the morning. - avoid nephrotoxic medications. (5) Diabetes mellitus, type II Current Visit: Yes Status: Acute Base Code: E11.9 - TYPE 2 DIABETES MELLITUS WITHOUT COMPLICATIONS Comment: 10/31/17: - at home Lantus 9 units QHS, Novolog 6 units TIDAC, Lisinopril 20mg, ASA 81. Lantus 5 units, sliding scale insulin low dose. - Hba1c 9.6 - ADA diet, POC glucose AcHs. (6) HTN, goal below 140/80 Current Visit: Yes Status: Acute Base Code: I10 - ESSENTIAL (PRIMARY) HYPERTENSION Comment: 10/31/17: - Norvasc 5mg and Lisinopril 20mg daily. 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 (8) DVT prophylaxis Current Visit: Yes Status: Acute Base Code: [id number] - Comment: 10/31/17: - Lovenox 40mg QD - Ambulation with assistance due to blindess. (9) Full code status Current Visit: Yes Status: Acute Base Code: Z78.9 - OTHER SPECIFIED HEALTH STATUS Comment: 10/31/17: - FULL CODE - Disposition Disposition: PT/ OT evaluation for sub-acute rehab placement. Results - Labs Result Diagrams: 10/31/17 06:39 10/31/17 06:39 Labs Last 24 Hours: Laboratory Results - last 24 hr 10/30/17 10/31/17 10/31/17 22:00 06:39 06:39 WBC RBC Hgb Hct MCV MCH MCHC RDW Plt Count MPV Neutrophils % Eosinophils % Basophils % Lymphocytes Monocytes Sodium Potassium Chloride Carbon Dioxide Anion Gap BUN Creatinine Estimated GFR POC Glucose 113 H Random Glucose Hemoglobin A1c 9.60 H Calcium Triglycerides 86 Cholesterol 93 LDL Cholesterol [place] 42.0 VLDL Cholesterol 17 HDL Cholesterol 37 L 10/31/17 10/31/17 10/31/17 06:39 06:39 12:54 WBC 10.6 RBC 3.43 L Hgb 10.4 L Hct 32.7 L MCV 95.3 MCH 30.3 MCHC 31.8 L RDW 12.6 Plt Count 146 MPV 11.5 H Neutrophils % 64.0 Eosinophils % Not Reportable Basophils % Not Reportable Lymphocytes 7.0 L Monocytes 29.0 H Sodium 139 Potassium 3.4 Chloride 101 Carbon Dioxide 30.0 H Anion Gap 8.0 BUN 31 H Creatinine 1.1 Estimated GFR > 60 POC Glucose 138 H Random Glucose 105 Hemoglobin A1c Calcium 7.8 L Triglycerides Cholesterol LDL Cholesterol [place] VLDL Cholesterol HDL Cholesterol 10/31/17 17:00 WBC RBC Hgb Hct MCV MCH MCHC RDW Plt Count MPV Neutrophils % Eosinophils % Basophils % Lymphocytes Monocytes Sodium Potassium Chloride Carbon Dioxide Anion Gap BUN Creatinine Estimated GFR POC Glucose 103 Random Glucose Hemoglobin A1c Calcium Triglycerides Cholesterol LDL Cholesterol [place] VLDL Cholesterol HDL Cholesterol DVT/PE Assessment - Risk for VTE Risk for VTE: No Risk Level: Low Risk Assessment Date: 10/30/17 Risk Assessment Time: 09:16 VTE Orders Placed or Will Be Placed: Yes - Active Medicaitons Current Medications: Current Medications Amlodipine Besylate (Norvasc) 5 mg PO DAILY [facility] Last Admin: 10/31/17 10:59 Dose: 5 mg Aspirin (Ecotrin (Ec)) 81 mg PO QHS [facility] Last Admin: 10/30/17 22:10 Dose: 81 mg Insulin Aspart (Novolog Flexpen) 6 unit SQ WMEALS [facility]; Protocol Last Admin: 10/31/17 19:10 Dose: Not Given Insulin Detemir (Levemir Flextouch) 9 unit SQ BID [facility] Last Admin: 10/31/17 11:09 Dose: 9 unit Levothyroxine Sodium (Synthroid) 25 mcg PO DAILYTHY [facility] Last Admin: 10/31/17 06:58 Dose: 25 mcg Lisinopril (Zestril) 20 mg PO DAILY [facility] Last Admin: 10/31/17 11:00 Dose: 20 mg Ondansetron HCl (Zofran) 4 mg IVP Q4H PRN PRN Reason: NAUSEA Pantoprazole Sodium (Protonix Iv) 40 mg IV DAILY [facility] Last Admin: 10/31/17 10:59 Dose: 40 mg Tamsulosin HCl (Flomax) 0.4 mg PO DAILY [facility] Last Admin: 10/31/17 10:58 Dose: 0.4 mg AMI Plan - Labs Result Diagrams: 10/31/17 06:39 10/31/17 06:39
[2017-10-31] MEDS: ASPIRIN 81 MG TABEC PO SCH (22:57)
[2017-11-01 01:57] LABS: URINE APPEARANCE CLEAR; URINE BILIRUBIN SMALL (NEGATIVE); URINE BLOOD MODERATE (NEGATIVE); URINE COLOR YELLOW; URINE GLUCOSE (UA) NEGATIVE (NEGATIVE); URINE KETONE TRACE (NEGATIVE); URINE LEUKOCYTE ESTERASE TRACE (NEGATIVE); URINE NITRITE NEGATIVE (NEGATIVE)
[2017-11-01 02:11] LABS: URINE BACTERIA FEW; URINE EPITHELIAL CELLS 0 - 2 (FEW); URINE RBC 21 - 35 (NONE SEEN); URINE WBC 0 - 2 (0-2/hpf)
[2017-11-01] MEDS: LEVOTHYROXINE SODIUM 25 MCG TABLET PO SCH (06:35)
--- NOTE | 2017-11-01 07:23 | RADIOLOGY REPORT ---
EXAM: PORTABLE CHEST HISTORY: WHEEZING. COUGH. TECHNIQUE: A single mobile upright view of the chest was obtained. Comparison: CT of the abdomen and pelvis without contrast dated 10/29/17. FINDINGS: The lung volumes are low. There is possible minimal patchy air space disease in the left lung base consistent with atelectasis or less likely infiltrate. The lungs and pleural spaces are otherwise clear. The heart is borderline to mildly enlarged without pulmonary venous hypertension. The thoracic aorta is mildly tortuous. IMPRESSION: 1. LOW LUNG VOLUMES. MINOR PATCHY AIR SPACE DISEASE IN THE LEFT LUNG BASE CONSISTENT WITH ATELECTASIS OR LESS LIKELY INFILTRATE. 2. BORDERLINE TO MILD CARDIOMEGALY WITHOUT PULMONARY VENOUS HYPERTENSION. JOB NUMBER: [id number] [facility]
[2017-11-01] MEDS: NOVOLOG FLEXPEN (INSULIN ASPART) 100 UNITS/ML SQ SCH ×2 (07:30→12:29)
[2017-11-01] MEDS ORDERED: NITROFURANTOIN MONO 100 MG CAPSULE PO SCH (10:00)
[2017-11-01] MEDS ORDERED: ENOXAPARIN 40 MG/0.4 ML SYR SQ SCH (10:00)
--- NOTE | 2017-11-01 10:34 | Discharge Summary ---
Providers Discharge Summary Date: 11/01/17 Date of admission: 10/29/17 21:41 Expected Date of Discharge: 11/01/17 Attending physician: ROGER WEISS Consults: Consult Orders 11/01/17 09:01 Consult NOW Consulting Provider: VAMSI LEBLANC Physician Instructions: consult and treat Reason For Exam: bladder outlet obstruction Physical Exam - Vital Signs Vital Signs: Vital Signs - Last 24 Hrs Temp Pulse Resp BP Pulse Ox 11/01/17 09:48 98.1 F 73 18 138/65 95 11/01/17 06:00 99.6 F 75 20 114/64 97 11/01/17 00:30 99.3 F 82 20 130/62 97 10/31/17 20:00 100.0 F H 94 H 20 128/60 93 L 10/31/17 14:00 100.3 F H 80 16 133/57 91 L - General General Appearance: Alert, Oriented x3, Cooperative, No acute distress Limitations: No limitations - Head Head exam: Atraumatic, Normocephalic - ENT Throat exam: Normal inspection. negative: Tonsillar erythema, Tonsillar exudate - Neck Neck exam: Normal inspection, Full ROM. negative: Tenderness - Respiratory Respiratory exam: Normal lung sounds bilaterally. negative: Respiratory distress - Cardiovascular Cardiovascular Exam: Regular rate, Normal rhythm, Normal heart sounds Peripheral Pulses: 3+: Radial (R), Radial (L) - GI/Abdominal GI/Abdominal exam: Normal bowel sounds. negative: Soft - Rectal Rectal exam: Heme (-) stool. negative: Decreased rectal tone, Fecal impaction - Extremities Extremities exam: Pedal edema. negative: Normal inspection - Neurological Neurological exam: Alert. negative: Motor sensory deficit Hospitalization - Hospitalization Admission Diagnosis: 1. Acute Renal Failure with Bladder Outlet Obstruction. - Problem List/Discharge Diagnosis (1) Physical deconditioning Current Visit: Yes Status: Acute Base Code: R53.81 - OTHER MALAISE Comment : 11/01/17: - limited mobility at home due to visual impairment. - fall precautions, assist with toileting and ambulation. - Plan to d/c today and admit to swing bed for continued PT/OT (2) Bladder outflow obstruction Current Visit: Yes Status: Acute Base Code: N32.0 - BLADDER-NECK OBSTRUCTION Comment: 11/01/17: - abdominal distesntion/pain, UA: pos for trace leuks and few bacteria, fever of 100.3 last night - start macrobid 100mg bid for 5 days - bladder scan q6h and straight cath - Continue Flomax 0.4mg daily for BPH - Consult urology- to f/u outpatient once swing bed (3) Acute on chronic renal insufficiency Current Visit: Yes Status: Acute Base Code: N28.9 - DISORDER OF KIDNEY AND URETER, UNSPECIFIED; N18.9 - CHRONIC KIDNEY DISEASE, UNSPECIFIED Comment: 11/01: resolving - labs o 10/31: bun/Cr 31/1.1 - Will plant to repeat electrolytes q3 days while pt. in swing bed - avoid nephrotoxic medications. 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 (5) Diabetes mellitus, type II Current Visit: Yes Status: Acute Base Code: E11.9 - TYPE 2 DIABETES MELLITUS WITHOUT COMPLICATIONS Comment: 11/01/17: - at home Lantus 9 units QHS, Novolog 6 units TIDAC, Lisinopril 20mg, ASA 81. Lantus 5 units, sliding scale insulin low dose. - Hba1c 9.6 - ADA diet, POC glucose AcHs. (6) DVT prophylaxis Current Visit: Yes Status: Acute Base Code: [id number] - Comment: 11/01/17: - Lovenox 40mg QD- to continue during swing bed admission - Ambulation with assistance due to blindess. (7) HTN, goal below 140/80 Current Visit: Yes Status: Acute Base Code: I10 - ESSENTIAL (PRIMARY) HYPERTENSION Comment: 11/01/17: - Norvasc 5mg and Lisinopril 20mg daily. (8) Ileus Current Visit: Yes Status: Acute Base Code: K56.7 - ILEUS, UNSPECIFIED Comment: 11/01/17: - Resolving: +bowel sounds on auscultation. Several bowel movements after Mg citrate. - Pt. it tolerating full diet - Mg citrate PRN. (9) Full code status Current Visit: Yes Status: Acute Base Code: Z78.9 - OTHER SPECIFIED HEALTH STATUS Comment: 11/01/17: - Pt. remains full code status - Disposition Dicharge to swing bed - Hospitalization Course Disposition: Moved to Swing Bed Hospital Course: Mr. Guerrero is a 66 y/o diabetic patient who presented with complaint of abdominal pain, distension and difficulty having a bowel movement for 1 week. The patient says that he usually uses the rest room daily but over the past few days and his abdomen became increasingly painful. He also has a history of urinary retention but denies any symptoms of pain or burning. The patient is blind and lives with his elderly mother but says that he his somewhat independent but gets help from his younger brother who also lives there. He is a poor historian and his On arrival to the ED a CT of the abdomen was done which revealed large amount of fecal matter but no other acute process. The patient was straight catheterized in the ED and 3 liters of urine was obtained. No fecal occult blood was noted and urinalysis was negative for infection. 10/31/17: Patient is alert, awake and has no new complaints. He says that he has had bowel movements throughout the day and has not had any abdominal pain. 11/01/17: Pt. is resting comfortably in bed. He is alert and awake, no new complaints. UA at 0120 revealed trace ketones, small bili, trace leuks, and few bacteria. Pt. did have fever up to 100.3F last evening. Macrobid 100mg bid started and will plan to continue for total of 5 days. Plan to d/c to swing bed today and pt. to f/u with urology outpatient for bladder outlet syndrome. He continues to have >500ml urine on bladder scan q6h. Procedures: Imaging and X-Rays 10/29/17 18:12 ABDOMEN/PELVIS WO CONTRAST [CT] Stat 10/30/17 00:00 HEAD WO CONTRAST [CT] Stat 10/31/17 15:08 CHEST 1 VIEW [RAD] Stat Abnormal Labs: Abnormal Lab Results 10/29/17 10/29/17 10/29/17 Range/Units 19:20 19:20 19:20 WBC 13.1 H (4.2-12.2) K/uL RBC 3.72 L (4.40-5.70) M/uL Hgb 11.1 L (14.0-18.0) gm/dl Hct 35.1 L (42.0-52.0) % MCHC 31.6 L (32-36) g/dl MPV 10.8 H (7.4-10.4) fl Lymphocytes 6.0 L (16-45) % Monocytes 30.0 H (0-9) % Carbon Dioxide (22-29) mmol/L BUN 41 H (8-23) mg/dL Creatinine 1.7 H (0.7-1.2) mg/dL POC Glucose (70-110) mg/dL Random Glucose 155 H (74-109) mg/dL Hemoglobin A1c (4.0-6.00) % Calcium (8.8-10.2) mg/dL Total Protein 6.4 L (6.6-8.7) g/dL HDL Cholesterol (40-60) mg/dL Lipase 8 L (13-60) U/L Urine Protein (NEGATIVE) Urine Glucose (UA) 500 mg/dl H (NEGATIVE) Urine Ketones (NEGATIVE) Urine Bilirubin (NEGATIVE) Ur Leukocyte Esterase (NEGATIVE) 10/30/17 10/30/17 10/30/17 Range/Units 06:00 06:00 11:50 WBC 12.3 H (4.2-12.2) K/uL RBC 3.45 L (4.40-5.70) M/uL Hgb 10.6 L (14.0-18.0) gm/dl Hct 32.7 L (42.0-52.0) % MCHC (32-36) g/dl MPV 11.7 H (7.4-10.4) fl Lymphocytes 8.0 L (16-45) % Monocytes 38.0 H (0-9) % Carbon Dioxide (22-29) mmol/L BUN 37 H (8-23) mg/dL Creatinine 1.4 H (0.7-1.2) mg/dL POC Glucose 321 H (70-110) mg/dL Random Glucose 170 H (74-109) mg/dL Hemoglobin A1c (4.0-6.00) % Calcium 8.4 L (8.8-10.2) mg/dL Total Protein (6.6-8.7) g/dL HDL Cholesterol (40-60) mg/dL Lipase (13-60) U/L Urine Protein (NEGATIVE) Urine Glucose (UA) (NEGATIVE) Urine Ketones (NEGATIVE) Urine Bilirubin (NEGATIVE) Ur Leukocyte Esterase (NEGATIVE) 0810/30/17 10/31/17 Range/Units 17:00 22:00 06:39 WBC (4.2-12.2) K/uL RBC (4.40-5.70) M/uL Hgb (14.0-18.0) gm/dl Hct (42.0-52.0) % MCHC (32-36) g/dl MPV (7.4-10.4) fl Lymphocytes (16-45) % Monocytes (0-9) % Carbon Dioxide (22-29) mmol/L BUN (8-23) mg/dL Creatinine (0.7-1.2) mg/dL POC Glucose 168 H 113 H (70-110) mg/dL Random Glucose (74-109) mg/dL Hemoglobin A1c 9.60 H (4.0-6.00) % Calcium (8.8-10.2) mg/dL Total Protein (6.6-8.7) g/dL HDL Cholesterol (40-60) mg/dL Lipase (13-60) U/L Urine Protein (NEGATIVE) Urine Glucose (UA) (NEGATIVE) Urine Ketones (NEGATIVE) Urine Bilirubin (NEGATIVE) Ur Leukocyte Esterase (NEGATIVE) 10/31/17 10/31/17 10/31/17 Range/Units 06:39 06:39 06:39 WBC (4.2-12.2) K/uL RBC 3.43 L (4.40-5.70) M/uL Hgb 10.4 L (14.0-18.0) gm/dl Hct 32.7 L (42.0-52.0) % MCHC 31.8 L (32-36) g/dl MPV 11.5 H (7.4-10.4) fl Lymphocytes 7.0 L (16-45) % Monocytes 29.0 H (0-9) % Carbon Dioxide 30.0 H (22-29) mmol/L BUN 31 H (8-23) mg/dL Creatinine (0.7-1.2) mg/dL POC Glucose (70-110) mg/dL Random Glucose (74-109) mg/dL Hemoglobin A1c (4.0-6.00) % Calcium 7.8 L (8.8-10.2) mg/dL Total Protein (6.6-8.7) g/dL HDL Cholesterol 37 L (40-60) mg/dL Lipase (13-60) U/L Urine Protein (NEGATIVE) Urine Glucose (UA) (NEGATIVE) Urine Ketones (NEGATIVE) Urine Bilirubin (NEGATIVE) Ur Leukocyte Esterase (NEGATIVE) 10/31/17 10/31/17 11/01/17 Range/Units 12:54 22:00 01:20 WBC (4.2-12.2) K/uL RBC (4.40-5.70) M/uL Hgb (14.0-18.0) gm/dl Hct (42.0-52.0) % MCHC (32-36) g/dl MPV (7.4-10.4) fl Lymphocytes (16-45) % Monocytes (0-9) % Carbon Dioxide (22-29) mmol/L BUN (8-23) mg/dL Creatinine (0.7-1.2) mg/dL POC Glucose 138 H 214 H (70-110) mg/dL Random Glucose (74-109) mg/dL Hemoglobin A1c (4.0-6.00) % Calcium (8.8-10.2) mg/dL Total Protein (6.6-8.7) g/dL HDL Cholesterol (40-60) mg/dL Lipase (13-60) U/L Urine Protein 100 mg/dl H (NEGATIVE) Urine Glucose (UA) (NEGATIVE) Urine Ketones Trace H (NEGATIVE) Urine Bilirubin Small H (NEGATIVE) Ur Leukocyte Esterase Trace H (NEGATIVE) Condition at Discharge: (2) Stable Discharge Medications - Discharge Medications Home Medications: Ambulatory Orders Insulin Aspart [Novolog Flexpen] 6 units SQ TID 01/19/14 [Last Taken 1 Day Ago ~ 10/28/17] Insulin Glargine,Hum.rec.anlog [Lantus] 9 units SQ .ASDIR 01/19/14 [Last Taken 1 Day Ago ~10/28/17] Lisinopril 20 mg PO DAILY 01/19/14 [Last Taken 1 Day Ago ~10/28/17] Aspirin [Aspirin EC] 81 mg PO QHS 02/15/14 [Last Taken 1 Day Ago ~10/28/17] Multivitamin [Multi-Vitamin Daily] 1 each PO DAILY 02/15/14 [Last Taken 1 Day Ago ~10/28/17] Enoxaparin Sodium [Lovenox] 40 mg SQ DAILY syr 11/01/17 [Last Taken Unknown] Nitrofurantoin [place] [Macrobid] 100 mg PO BIDWM capsule 11/01/17 [Last Taken Unknown] Tamsulosin HCl [Flomax] 0.4 mg PO DAILY cap.er.24h 11/01/17 [Last Taken Unknown ] Discharge Plan - Discharge Instructions Activity at Discharge: As Per Physical Therapy Diet at Discharge: Diabetic Diet Quality Measures - Quality Measures Quality Measures: Documentation of Current Medications in Medical Record, Screening for High Blood Pressure and F/U Documented - Current Medications Quality Measure: Measure #130: Documentation of Current Medications Documentation of Current Medications: <Current Medications Documented/Reviewed> [[id number]] - Blood Pressure Screening Quality Measure: Screening for High Blood Pressure and Follow-Up Documented Does Patient Have Any of the Following: Active Dx of HTN Blood Pressure Classification: Hypertensive Reading Systolic Measurement: 107 Diastolic Measurement: 97 Screening for High Blood Pressure: Patient Exclusion, Hx of HTN [G9744] - Elder Abuse Suspicion Index EASI Reference Information: Devon GUPTA, Anselmo C, Eh D, Yakelin Mark.Development and validation of a tool to assist physicians identification of elder abuse: The Elder Abuse Suspicion Index (EASI ). Journal of Elder Abuse and Neglect, 2008; 20 (3): 276-300.
[2017-11-01] MEDS: TAMSULOSIN HCL 0.4 MG CAP.ER.24H PO SCH (10:53)
[2017-11-01] MEDS: LISINOPRIL 20 MG TABLET PO SCH (10:53)
[2017-11-01] MEDS: AMLODIPINE BESYLATE 5MG TAB PO SCH (10:54)
[2017-11-01] MEDS: PANTOPRAZOLE SODIUM IV 40 MG VIAL IV SCH (10:54)
[2017-11-01] MEDS: LEVEMIR FLEXTOUCH 100 UNIT/ML INSULIN PEN SQ SCH (10:55)
--- NOTE | 2017-11-01 11:00 | Physical Therapy Tx Note ---
Physical Therapy Tx Note - Treatment Note Tolerated: Fair Total Time Spent With Patient: 20 Physical Therapy Tx Note: Detail (Patient was in bed with 2L of O2 upon arrival. He reported a decrease in abdominal pain. Supine to sit was IND, but patient required a rest break between moving LE and trunk, and verbal/tactile cueing for hand placement to use hand rails to assist with supine to sit transfer, the head of bed was also raised. The patient completed a sit to stand transfer with supervision assist, and then a stand to commode transfer. When standing from the commode the patient required MIN assist x 1. The patient ambulated 11' with CGA and a front wheeled walker. The patient also required assistance steering the walker and needed verbal cues for directions. The patient performed 5-10 repitions of hip marches, LAQ, and heel-toe raises. The patient was left up in the chair with the call light, and nursing staff was notified who reported he is not currently using a chair alarm.) Physical Therapy Problem List: Detail (1) Decreased ability to complete prolonged physical activity 2) Decreased LE strength 3) Assistance with ambulation) Physical Therapy Goals: 1) Evaluate bed mobility. 2) Increased LE strength 1/3 muscle grade to improve overall functional mobility. 3) The patient will ambulate with appropriate assistive device distances of 100 feet plus with minimal shortness of breath. 4) The patient will tolerate 30 minutes of physical activity with one rest period. 5) The patient will be independent with bed mobility and transfers. Prognosis: Good Physical Therapy Plan: PT 1 time a day for gait training, transfer training, bed mobility, LE strengthening and endurance exercises.
== END 2017-11-01 13:13 | disposition swing bed (61) | DRG 683 ==
LOC: ER 18:02 → MEDSURG 21:41
PROVIDERS: ADMIT Internal Medicine; ATTEND Internal Medicine
DX: N17.9 Acute kidney failure, unspecified (principal); K56.7 Ileus, unspecified; N32.0 Bladder-neck obstruction; R14.0 Abdominal distension (gaseous); K59.09 Other constipation; R53.81 Other malaise; I10 Essential (primary) hypertension; E11.9 Type 2 diabetes mellitus without complications; Z79.4 Long term (current) use of insulin; E03.9 Hypothyroidism, unspecified; H54.7 Unspecified visual loss
CPT/HCPCS: 83690; 80076; 80048; 81003; 84443; 85027; 74176; J2405; 36416; 70450; 71045; 80061; 81001; 82948; 83036; 96374; 97530; 99223; 99233; 99239; 99285; C9113; J1650

== ENCOUNTER 2017-11-01 11:00 | Inpatient (IN) | payer MEDICARE, MEDICAID ==
--- NOTE | 2017-11-01 13:02 | Rehab Evaluation ---
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 Eye surgery, T&A. PMH - Respiratory Hx Respiratory Disorders No PMH - Cardiovascular Hx Abnormal EKG No Hx Cardiac Catheterization No Hx Chest Pain No Hx Congestive Heart Failure No Hx Deep Vein Thrombosis No Hx Edema No Hx Heart Attack No Hx Hypertension Yes Hx Hypotension No Hx Irregular Heartbeat No Hx Palpitations No Hx Pacemaker/Defibrillator No Hx Vascular Disease No Hx Transient Ischemic Attacks No (TIA) PMH - Neuro Hx Neurological Disorders Yes Hx Brain Tumor Yes: abscess Hx Cerebrovascular Accident No Hx Dementia No Hx Dizziness Yes Hx Headaches Yes Hx Neuropathy No Hx Parkinson's Disease No Hx Seizures No Hx Speech Problem No Hx Syncope No Hx Transient Ischemic Attacks No (TIA) Comment: Surgery for brain abscess in 1976. PMH - GI Hx Gastrointestinal Disorders Yes Hx Abdominal Pain No Hx Celiac Disease No Hx Crohn's Disease No Hx Diverticulitis No Hx Gastrointestinal Bleed No Hx Gastroesophageal Reflux No Hx Hepatitis/Jaundice No Hx Hiatal Hernia No Hx Irritable Bowel No Hx Liver Disease No Hx Nausea/Vomiting No Hx Obstructive Bowel No Hx Pancreatitis No Hx Rectal Bleeding No Hx Ulcer No Hx Weight Loss/Weight Gain No Comment: Chronic constipation PMH - Hx Genitourinary Disorders Yes Hx Bladder Problem Yes Hx Dialysis No Hx Kidney Stones No Hx Prostate Problems Yes PMH - Endocrine Hx Endocrine Disorders Yes Hx Diabetes Yes: IDDM Hx Thyroid Disease Yes Comment: Just started Levothyroxine on 01/10/14 PMH - Musculoskeletal Hx Musculoskeletal Disorders No PMH - Psych Hx Psychiatric Problems No PMH - Hematology/Oncology Hx Hematology/Oncology No Disorders Premorbid Status: Detail (Patient lives with mother in a 2 story house with basement, he stays on the main level. He has a ramp at the entrance. He has a tub/shower combination, no grab bars and an elevated toilet with grab bars. He uses a cane for mobility due to visual impairment. He reports being Ind with self cares and mobility as well as using the microwave for light meal prep. He has home health aides 2 times daily to assist with home mgmt, meal prep and laundry.) Precautions: [place], Fall, Other (Legally blind, using 2-3 liters of oxygen) - Time With Patient Total Time Spent With Patient (Min): 40 Treatment Procedures: Detail (OT eval low complexity) Subjective Information - Subjective Information Per Patient Objective Data - Pain Pain Present: Yes (3/10 belly pain at times) - Mental Status Patient Orientation: Oriented x3 - Visual Perception Deficit (Pt is legally blind.) - ROM Within normal limits (Obey UE AROM WNL) - Strength/Tone Within normal limits (Obey UE strength 4+/5 although he demonstrates decreased endurance and increased shortness of breath with activity.) - Coordination Appears within normal limits for therapeutic activities - Transfers Independent (Ind with sit to stand from EOB and chair heights.) - Balance Balance Sitting: Good Balance Standing: Fair (Pt reports dizziness when standing.) - Sensation Intact - Gait Detail (Pt able to ambulate short distance with 2 wheeled walker and assist to manuever walker due to visual impairment.) - ADL's/IADL's Detail (Pt able to doff gown with assist to untie, doff slipper socks Indly, don t-shirt with verbal cues for orientation of shirt, don jeans, socks and slipper socks Indly. Pt requires assist for toileting.) Therapy Assessment - Therapy Assessment Detail (Pt presents with decreased endurance needed for safe and Ind self cares and mobility.) Problem List - Problem List Occupational Therapy Problem List: Detail (1. Decreased overall endurance needed for safe and Ind ADLs. 2. Decreased Ind with showering.) Goals - Goals Occupational Therapy Goals: 1. Pt will demonstrate improved endurance to ensure safe and Ind self care and mobility. 2. Pt will be safe and Ind with showering in standing. Prognosis - Prognosis Good Plan - Plan Occupational Therapy Plan: OT 2-4 days per week to address endurance, self cares and functional mobility to allow return home with family.
[2017-11-01] MEDS ORDERED: ONDANSETRON HCL IV 4 MG/2 ML VIAL IVP PRN (13:51)
[2017-11-01] MEDS: ACETAMINOPHEN 500 MG TABLET PO PRN ×2 (17:10→23:01)
[2017-11-01] MEDS: NOVOLOG FLEXPEN (INSULIN ASPART) 100 UNITS/ML SQ SCH (18:26)
[2017-11-01] MEDS: NITROFURANTOIN MONO 100 MG CAPSULE PO SCH (18:28)
[2017-11-01] MEDS: LEVEMIR FLEXTOUCH 100 UNIT/ML INSULIN PEN SQ SCH (22:53)
[2017-11-02] MEDS: ACETAMINOPHEN 500 MG TABLET PO PRN (06:00)
[2017-11-02] MEDS: LEVOTHYROXINE SODIUM 25 MCG TABLET PO SCH (06:00)
[2017-11-02] MEDS: PANTOPRAZOLE SODIUM 40 MG TABLET PO SCH (06:01)
--- NOTE | 2017-11-02 08:30 | Swing Bed Certification/Recert ---
Initial Certification Due: 11/01/17 14 Day Re-Cert Due: 11/15/17 44 Day Re-Cert Due: 12/15/17 74 Day Re-Cert Due: 01/14/18 CERTIFICATION 3 CERTIFICATION OF PATIENT ADMISSION Required at time of admission. Due: 11/01/17 I certify that SNF services are required to be given on an inpatient basis because of the above named patient's need for penitentiary care on a continuing basis for the condition(s) for which he/she was receiving inpatient hospital services prior to his/her transfer to the SNF. The patient's current needs for skilled care includes: [] Marilin Francis, N.P. 11/01/17
--- NOTE | 2017-11-02 08:38 | History & Physical ---
History of Present Illness - Date Date of Service for History & Physical: 11/02/17 - History of Present Illness Admitting Diagnosis: deconditioning due to ARF History of Present Illness: Mr. Guerrero is a 66 y/o diabetic patient who presented to the ED on 10/30 with complaint of abdominal pain, distension and difficulty having a bowel movement for 1 week. The patient says that he usually uses the rest room daily but over the past few days and his abdomen became increasingly painful. He also has a history of urinary retention but denies any symptoms of pain or burning. The patient is blind and lives with his elderly mother but says that he his somewhat independent but gets help from his younger brother who also lives there. He is a poor historian and his On arrival to the ED a CT of the abdomen was done which revealed large amount of fecal matter but no other acute process. The patient was straight catheterized in the ED and 3 liters of urine was obtained. No fecal occult blood was noted and urinalysis was negative for infection. 10/31/17: Patient is alert, awake and has no new complaints. He says that he has had bowel movements throughout the day and has not had any abdominal pain. 11/01/17: Pt. is resting comfortably in bed. He is alert and awake, no new complaints. UA at 0120 revealed trace ketones, small bili, trace leuks, and few bacteria. Pt. did have fever up to 100.3F last evening. Macrobid 100mg bid started and will plan to continue for total of 5 days. Plan to d/c to swing bed today and pt. to f/u with urology outpatient for bladder outlet syndrome. He continues to have >500ml urine on bladder scan q6h. 11/02/17: Pt. is resting in bed. He has completed his PT/OT evaluations and will plan for PT M-F and OT 2-4x/week- to address endurance, self care, and functional mobility to allow return home with family. Pt. was seen by urology ( Dr. Vazquez) the afternoon of 11/01 and he recommended d/c with indwelling snider catheter and f/u once outpatient. General - Cognitive Patterns Speech: Normal Thought Process: Intact Thought Content: Normal Orientation: Oriented x3, Person - Communication Preferred Language?: Serbian [employer] Required: No Level of Education: High School Preferred Method of Learning: Doing Comprehension Ability: Impairment Select best description of speech pattern: Clear Speech Ability to express ideas and wants: Understood Understanding verbal content: Understands - Mood and Behavior Patterns Appearance: Well Groomed Mood: Normal Attitude: Cooperative Motor Activity: Calm Affect: Appropriate Hallucinations: Denies - Psychosocial Well-Being Usual Living Arrangement: Parent Living Arrangement Comment: lives with 90 yr old mother - Physical Functioning Activity Level: Up with assist x2 Turning: Self ad sara ROM Ability: Moves all extremities Assistive Devices: 2 Wheel Walker Ambulation Ability: Needs Assist Bed Mobility: Independent Transfer Ability: Needs Assist Bathing Ability: Needs Assist Personal Hygiene: Needs Assist Dressing Ability: Needs Assist Eating (Feeding) Ability: Needs Assist Toileting Ability: Needs Assist Administer Own Medication: Needs Assist - Continence Bowel Pattern: Normal for Patient Bladder Pattern: Retention - Dental Status Unable to examine: No Broken or loosely fitting full or partial dentures: No No natural teeth or tooth fragment(s) (edentulous): No Abnormal mouth tissue (ulcers, masses, oral lesions, etc.): No Obvious or likely cavity or broken natural teeth: No Inflamed or bleeding gums or loose natural teeth: No Mouth/facial pain, discomfort or difficulty chewing: No - Nutrition Screening Poor oral intake > 1 week: No Unplanned weight loss in specified time frame: No Nutrition Support via tube feedings or parenteral nutrition: No Pressure Ulcer: No Significantly underweight define as BMI <18.5 kg/m2: No Albumin <2.5mg/dL: No Persistent nausea/vomiting/diarrhea >3 days: No Difficulty chewing/swallowing/mouth sores: No Admitting Diagnosis: No Nutrition Risk Score: Low Risk Review of Systems Reviewed: No additional complaints except as noted below Past Medical History - SOCIAL HISTORY Smoking Status: Never smoker Alcohol Use: Rare - SURGICAL HISTORY Past Surgical History: Brain surgery to remove brain abscess. Eye surgery, T&A. - RESPIRATORY Hx Respiratory Disorders: No - CARDIOVASCULAR Hx Cardio Disorders: Yes Hx Abnormal EKG: No Hx Cardiac Cath: No Hx Chest Pain: No Hx CHF: No Hx Deep Vein Thrombosis: No Hx Edema: No Hx Heart Attack: No Hx Hypertension: Yes Hx Hypotension: No Hx Irregular Heartbeat: No Hx Palpitations: No Hx Pacemaker/Defib: No Hx Vascular Disease: No - NEURO Hx Neuro Disorders: Yes Hx Brain Tumor: Yes (abscess) Hx CVA: No Hx Dementia: No Hx Dizziness: Yes Hx Headaches: Yes Hx Neuropathy: No Hx Parkinson's Disease: No Hx Seizures: No Hx Speech Problem: No Hx TIA: No Comment:: Surgery for brain abscess in 1976. - GI Hx GI Disorders: Yes Hx Abdominal Pain: No Hx Celiac Disease: No Hx Crohn's Disease: No Hx Diverticulitis: No Hx GI Bleed: No Hx Reflux: No Hx Hepatitis/Jaundice: No Hx Hiatal Hernia: No Hx Irritable Bowel: No Hx Liver Disease: No Hx Nausea/Vomiting: No Hx Obstructive Bowel: No Hx Pancreatitis: No Hx Rectal Bleeding: No Hx Ulcer: No Hx Wt Loss/Wt Gain: No Hx of Polyps: No Comment:: Chronic constipation - Hx Genitourinary Disorders: Yes Hx Bladder Problem: Yes Hx Dialysis: No Hx Kidney Stones: No Hx Prostate Problems: Yes - ENDOCRINE Hx Endocrine Disorders: Yes Hx Diabetes: Yes (IDDM) Hx Thyroid Disease: Yes Comment:: Just started Levothyroxine on 01/10/14 - MUSCULOSKELETAL Hx Musculoskeletal Disorders: No - PSYCH Hx Psych Problems: No - HEMATOLOGY/ONCOLOGY Hx Hematology/Oncology Disorders: No Family Medical History Any Significant Family History?: Yes Hx Cancer: Father Hx Stroke: Mother H&P Meds/Allergies - Allergies Allergies: Allergies Allergy/AdvReac Type Severity Reaction Status Date / Time No Known Drug Allergies Allergy Verified 10/29/17 18:14 - Home Medications Previous Rx's Medication Instructions Recorded Enoxaparin Sodium [Lovenox] 40 mg SQ DAILY syr 11/01/17 Nitrofurantoin Morrow [Macrobid] 100 mg PO BIDWM capsule 11/01/17 Tamsulosin HCl [Flomax] 0.4 mg PO DAILY cap.er.24h 11/01/17 - Active Medications Active Medications: Current Medications Acetaminophen (Tylenol 500mg Tab) 1,000 mg PO Q6H PRN PRN Reason: PAIN - MILD TO MODERATE (1-7) Last Admin: 11/02/17 06:00 Dose: 1,000 mg Amlodipine Besylate (Norvasc) 5 mg PO DAILY [facility] Aspirin (Ecotrin (Ec)) 81 mg PO DAILY [facility] Enoxaparin Sodium (Lovenox) 40 mg SQ DAILY [facility] Insulin Aspart (Novolog Flexpen) 6 unit SQ WMEALS [facility] Last Admin: 11/01/17 18:26 Dose: 6 unit Insulin Detemir (Levemir Flextouch) 9 unit SQ BID [facility] Last Admin: 11/01/17 22:53 Dose: 9 unit Levothyroxine Sodium (Synthroid) 25 mcg PO DAILYTHY [facility] Last Admin: 11/02/17 06:00 Dose: 25 mcg Lisinopril (Zestril) 20 mg PO DAILY [facility] Nitrofurantoin Macrocrystals (Macrobid) 100 mg PO BIDWM [facility] Stop: 11/05/17 08:01 Last Admin: 11/01/17 18:28 Dose: 100 mg Ondansetron HCl (Zofran) 4 mg IVP Q4H PRN PRN Reason: NAUSEA/VOMITING Pantoprazole Sodium (Protonix) 40 mg PO DAILYAC [facility] Last Admin: 11/02/17 06:01 Dose: 40 mg Tamsulosin HCl (Flomax) 0.4 mg PO DAILY [facility] Physical Exam - Vital Signs Vital Signs: Vital Signs - Last 24 Hrs Temp Pulse Resp BP Pulse Ox 11/01/17 20:00 98.5 F 78 20 124/59 95 11/01/17 17:15 87 94 L 11/01/17 16:50 84 92 L 11/01/17 13:30 98.7 F 94 H 18 148/62 98 - General General Appearance: Alert, Oriented x3, Cooperative Limitations: Physical limitation (generalized weakness, deconditioning) - Head Head exam: Atraumatic, Normocephalic - ENT ENT exam: Normal exam, Mucous membranes moist, Normal external ear exam, Normal orophraynx, TM's normal bilaterally Ear exam: Normal external inspection. negative: External canal tenderness Nasal Exam: Normal inspection. negative: Discharge, Sinus tenderness Mouth exam: Normal external inspection, Tongue normal Teeth exam: Normal inspection. negative: Dental caries Throat exam: Normal inspection. negative: Tonsillar erythema, Tonsillar exudate - Respiratory Respiratory exam: Normal lung sounds bilaterally. negative: Respiratory distress - Cardiovascular Cardiovascular Exam: Regular rate, Normal rhythm, Normal heart sounds - GI/Abdominal GI/Abdominal exam: Soft, Normal bowel sounds. negative: Tenderness - Rectal Rectal exam: Deferred - exam: Other (Snider catheter in place, clear/yellow urine) - Extremities Extremities exam: Normal inspection, Full ROM, Normal capillary refill. negative: Tenderness - Neurological Neurological exam: Alert, Oriented X3, Reflexes normal H&P Results - Labs Labs Last 24 Hours: Laboratory Results - last 24 hr 11/01/17 11/01/17 17:56 22:00 POC Glucose 152 H 152 H Discharge Potential - Discharge Needs Community Services Used Prior to Admission: Home Health Aide Patient Discharge Plan Description: Return Home Community Services Needed at Discharge: Home Health Aide Plan - Swing Bed Certification Initial Certification Due: 11/01/17 14 Day Re-Cert Due: 11/15/17 44 Day Re-Cert Due: 12/15/17 74 Day Re-Cert Due: 01/14/18 - Detailed Diagnosis and Plan (1) Physical deconditioning Current Visit: No Status: Acute Base Code: R53.81 - OTHER MALAISE Comment : 11/02/17: - limited mobility at home due to visual impairment. - deconditioning due to CRF - fall precautions, assist with toileting and ambulation. - Admitted to swing bed for continued PT/OT (2) Bladder outflow obstruction Current Visit: No Status: Acute Base Code: N32.0 - BLADDER-NECK OBSTRUCTION Comment: 11/02/17: - abdominal distesntion/pain, UA: pos for trace leuks and few bacteria, fever of 100.3 10/31/17 - continue macrobid 100mg bid for 5 days - Continue Flomax 0.4mg daily for BPH - Consulted urology (Dr. Vazquez)- recommended indwelling snider catheter and f /u after d/c (3) Acute on chronic renal insufficiency Current Visit: No Status: Acute Base Code: N28.9 - DISORDER OF KIDNEY AND URETER, UNSPECIFIED; N18.9 - CHRONIC KIDNEY DISEASE, UNSPECIFIED Comment: 11/02: resolving - labs on 10/31: bun/Cr 31/1.1 - Will plant to repeat electrolytes q3 days while pt. in swing bed - avoid nephrotoxic medications. 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 (5) Diabetes mellitus, type II Current Visit: No Status: Acute Base Code: E11.9 - TYPE 2 DIABETES MELLITUS WITHOUT COMPLICATIONS Comment: 11/02/17: - at home Lantus 9 units QHS, Novolog 6 units TIDAC, Lisinopril 20mg, ASA 81. Lantus 5 units, sliding scale insulin low dose. - Hba1c 9.6 - ADA diet, POC glucose AcHs. (6) DVT prophylaxis Current Visit: No Status: Acute Base Code: [id number] - Comment: 11/02/17: - Lovenox 40mg QD - Ambulation with assistance due to blindess. (7) Full code status Current Visit: No Status: Acute Base Code: Z78.9 - OTHER SPECIFIED HEALTH STATUS Comment: 11/02/17: - Pt. remains full code status
[2017-11-02] MEDS: NOVOLOG FLEXPEN (INSULIN ASPART) 100 UNITS/ML SQ SCH ×3 (09:26→17:47)
[2017-11-02] MEDS: LEVEMIR FLEXTOUCH 100 UNIT/ML INSULIN PEN SQ SCH ×2 (09:26→21:21)
[2017-11-02] MEDS: AMLODIPINE BESYLATE 5MG TAB PO SCH (09:30)
[2017-11-02] MEDS: ENOXAPARIN 40 MG/0.4 ML SYR SQ SCH (09:30)
[2017-11-02] MEDS: ASPIRIN 81 MG TABEC PO SCH (09:31)
[2017-11-02] MEDS: TAMSULOSIN HCL 0.4 MG CAP.ER.24H PO SCH (09:31)
[2017-11-02] MEDS: LISINOPRIL 20 MG TABLET PO SCH (09:31)
[2017-11-02] MEDS: NITROFURANTOIN MONO 100 MG CAPSULE PO SCH ×2 (09:31→17:47)
[2017-11-02] MEDS ORDERED: ZINC OXIDE 28.35 GM TUBE TOP ONE (09:32)
[2017-11-02] MEDS: TRAMADOL HCL 50 MG TABLET PO PRN ×2 (13:01→21:21)
--- NOTE | 2017-11-02 13:41 | Rehab Evaluation ---
Patient Information - Patient Information Diagnosis: deconditioning due to acute renal failure Ordered Treatment: PT Evaluate and Treat Status: Initial Evaluation Surgery: No Past Medical/Surgical Hx: PAST MEDICAL/SURGICAL HISTORY Past Surgical History Brain surgery to remove brain abscess. Eye surgery, T&A. PMH - Respiratory Hx Respiratory Disorders No PMH - Cardiovascular Hx Cardiovascular Disorders Yes Hx Abnormal EKG No Hx Cardiac Catheterization No Hx Chest Pain No Hx Congestive Heart Failure No Hx Deep Vein Thrombosis No Hx Edema No Hx Heart Attack No Hx Hypertension Yes Hx Hypotension No Hx Irregular Heartbeat No Hx Palpitations No Hx Pacemaker/Defibrillator No Hx Vascular Disease No Hx Transient Ischemic Attacks No (TIA) PMH - Neuro Hx Neurological Disorders Yes Hx Brain Tumor Yes: abscess Hx Cerebrovascular Accident No Hx Dementia No Hx Dizziness Yes Hx Headaches Yes Hx Neuropathy No Hx Parkinson's Disease No Hx Seizures No Hx Speech Problem No Hx Syncope No Hx Transient Ischemic Attacks No (TIA) Comment: Surgery for brain abscess in 1976. PMH - GI Hx Gastrointestinal Disorders Yes Hx Abdominal Pain No Hx Celiac Disease No Hx Crohn's Disease No Hx Diverticulitis No Hx Gastrointestinal Bleed No Hx Gastroesophageal Reflux No Hx Hepatitis/Jaundice No Hx Hiatal Hernia No Hx Irritable Bowel No Hx Liver Disease No Hx Nausea/Vomiting No Hx Obstructive Bowel No Hx Pancreatitis No Hx Rectal Bleeding No Hx Ulcer No Hx Weight Loss/Weight Gain No Comment: Chronic constipation PMH - Hx Genitourinary Disorders Yes Hx Bladder Problem Yes Hx Dialysis No Hx Kidney Stones No Hx Prostate Problems Yes PMH - Endocrine Hx Endocrine Disorders Yes Hx Diabetes Yes: IDDM Hx Thyroid Disease Yes Comment: Just started Levothyroxine on 01/10/14 PMH - Musculoskeletal Hx Musculoskeletal Disorders No PMH - Psych Hx Psychiatric Problems No PMH - Hematology/Oncology Hx Hematology/Oncology No Disorders Premorbid Status: Detail (Patient lives with mother in a 2 story house with basement, he stays on the main level. He has a ramp at the entrance. He has a tub/shower combination, no grab bars and an elevated toilet with grab bars. He uses a cane for mobility due to visual impairment. He reports being Ind with self cares and mobility as well as using the microwave for light meal prep. He has home health aides 2 times daily to assist with home mgmt, meal prep and laundry.) Precautions: [place], Fall, Other (Legally blind, using 2-3 liters of oxygen) - Time With Patient Total Time Spent With Patient (Min): 25 Treatment Procedures: Detail (Initial evaluation, manual therapy.) Subjective Information - Subjective Information Per Patient (Patient was fatigued and did not want to ambulate. Patient had complaints of neck pain.) Objective Data - Pain Pain Present: Yes (Patient did not rate the pain on 0-10 scale.) - Mental Status Patient Orientation: Oriented x3 - Visual Perception Deficit (Patient is blind.) - ROM Within normal limits - Strength/Tone Not within normal limits (Strength testing was completed on 10/31/17. B hip strength was 4/5, knee extension 5/5, knee flexion 4+/5, and ankle 5/5.) - Bed Mobility Independent (Bed mobility was assessed on 11/01/17. Patient was IND with bed mobility but required a rest break during supine to sit.) - Transfers Independent (Transfers were assessed on 10/31/17. Patient performed sit to stand transfers IND with supervision assist and a front wheeled walker for safety.) - Balance Balance Sitting: Good Balance Standing: Fair - Sensation Intact - Gait Detail (Gait was assessed 10/31/17. Patient ambulated 22' with a front wheeled walker and supervision for safety. Patient requires assistance with steering the walker. Patient is on 2L O2 and becomes short of breath after ambulation.) Therapy Assessment - Therapy Assessment Detail (The patient does well with mobility despite visual deficit. The patient does have decreased tolerance to activity. Patient has worsening neck pain that may be due to poor posture. Patient responded well to manual therapy techniques. Feel like patient will progress well with exercise tolerance.) Problem List - Problem List Physical Therapy Problem List: Detail (1) Decreased exercise tolerance 2) Decreased LE strength 3) Assistance with ambulation) Occupational Therapy Problem List: Detail (1. Decreased overall endurance needed for safe and Ind ADLs. 2. Decreased Ind with showering.) Goals - Goals Physical Therapy Goals: 1) Patient will tolerate 30 minutes of physical activity. 2) Increased LE strength 1/3 muscle grade to improve overall functional mobility. 3) The patient will ambulate with the appropriate assistive device distances of 100 feet plus with minimal shortness of breath. 4 ) Decrease cervical pain to level 4 at highest using 0 to 10 pain scale. Occupational Therapy Goals: 1. Pt will demonstrate improved endurance to ensure safe and Ind self care and mobility. 2. Pt will be safe and Ind with showering in standing. Prognosis - Prognosis Good Plan - Plan Physical Therapy Plan: PT one to two times a day M-F for gait training, transfer training, bed mobility, LE strengthening, manual therapy tehniques and endurance exercises. Occupational Therapy Plan: OT 2-4 days per week to address endurance, self cares and functional mobility to allow return home with family.
--- NOTE | 2017-11-02 14:00 | Medical Records Consult ---
DATE OF CONSULTATION: 11/01/2017 REASON FOR CONSULTATION: Urinary retention. HISTORY OF PRESENT ILLNESS: A 66-year-old patient who has a history of diabetes and blindness, lives at home with his 90-year-old mother. He presented to [facility] with complaints of abdominal distention, constipation for 1 week, and difficulty voiding. He apparently has a history of urinary retention but has not had any workup that he can recall. On arrival to the emergency room, Orr catheter was placed and approximately 3 liters of urine was reportedly immediately returned. CT scan was performed showing significant constipation throughout the colon. The patient denies any prior urological surgeries or medications. Currently he is on Flomax here in the hospital. PAST MEDICAL HISTORY: Noted per the chart and includes diabetes, hypertension, brain abscess with resulting surgery performed in 1976, chronic constipation, hypothyroidism. PAST SURGICAL HISTORY: Negative for any urological surgeries. MEDICATIONS: 1. Norvasc. 2. Aspirin. 3. Insulin. 4. Levemir. 5. Synthroid. 6. Zestril. ALLERGIES: None known. FAMILY HISTORY: Negative for urological problems or malignancy. REVIEW OF SYSTEMS: Ten-plus per the chart. SOCIAL HISTORY: Negative for tobacco use ever. Denies alcohol or illicit drug use. PHYSICAL EXAMINATION: VITAL SIGNS: Temperature 98.3, heart rate 90, blood pressure 128/64, respirations 20. GENERAL: The patient appears awake, alert, in no distress. He is oriented x3. He appears moderately overweight. NECK: No masses or tenderness. CHEST: Normal expansion without any audible wheezing. ABDOMEN: Obese, soft, nontender. There is no costovertebral angle tenderness or palpable masses. GENITOURINARY: The patient refused examination today citing that he had just gotten dressed. NEUROLOGIC: No focal deficit; however, Nursing reports to me that he is nonambulatory. RECTAL: Exam performed in the emergency room reportedly revealed fecal impaction. LABORATORY DATA: White count 12.3, hemoglobin 10.6, platelets 146,000. BUN 37, creatinine 1.4, glucose 170. RADIOGRAPHIC DATA: CT scan was done without contrast. Pertinent findings show slightly increased caliber of both ureters. No evidence of renal or ureteral calculi. There is a large amount of stool visualized in the rectum and colon. The rectum is actually quite dilated and Orr catheter was in the bladder at the time of the scan being performed. FINAL IMPRESSION: 1. Acute and likely chronic urinary retention which is rather severe. 2. Acute on chronic constipation and fecal impaction. 3. 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 PLAN: The patient has been treated with magnesium citrate and currently is having loose stools. He has also been started on Flomax since the time of admission. Orr catheter was removed last night and he is having postvoid residuals of approximately 500 mL with very little filling sensation noted. Therefore, the patient most likely has chronic retention which could be partially due to diabetic cystopathy but could also have a BPH component. At this point, I would recommend continuing him on Flomax and continuing straight cath. It does not appear that he will be able to perform straight cath at home given his blindness and lack of anyone else at home who could help him. Therefore, if he is still retaining at the time he is ready for discharge, I have recommended he have a Orr catheter placed and follow up in the urology clinic here at [facility] in approximately 2 weeks for a voiding trial. Thank you for the opportunity to see this patient. Please let me know if I can be of further assistance. CC: MD DANILO Roy
--- NOTE | 2017-11-02 14:25 | Occupational Therapy Tx Note ---
Occupational Therapy Tx Note - Treatment Note Tolerated: Fair Total Time Spent With Patient: 45 (ADL) Occupational Therapy Treatment Note: Detail (S: Pt supine in bed, ready for showering. O: Supine to sit with mod assist x 1. Sit to stand and amb to shower seat with 2 wheeled walker and verbal cueing and min assist to manuever walker due to visual impairment. Pt doffed t-shirt Indly. Pt able to complete showering in sitting with min assist to wash back and CG assist for standing to wash buttocks and jimmy area as well as verbal cueing due to impaired vision. Pt able to dry self Indly although he was very fatigued and short of breath with activity. Pt amb to toilet and completed toileting with assist from nursing and therapist due to having loose stools. Pt donned briefs and slippers Indly after verbal cueing for orientation of clothing. Pt donned gown with min assist. Pt able to comb hair Indly. Pt amb 12 feet to chair with 2 wheeled walker and CG assist as well as verbal cueing. A: Pt continues with decreased endurance, min assist for showering in sitting, min assist for dressing) Occupational Therapy Problem List: Detail (1. Decreased overall endurance needed for safe and Ind ADLs. 2. Decreased Ind with showering.) Occupational Therapy Goals: 1. Pt will demonstrate improved endurance to ensure safe and Ind self care and mobility. 2. Pt will be safe and Ind with showering in standing. Prognosis: Good Occupational Therapy Plan: OT 2-4 days per week to address endurance, self cares and functional mobility to allow return home with family.
[2017-11-03 06:44] LABS: ALB/GLOB RATIO 1.1 (1.1-1.8); ALBUMIN 2.9 g/dL (4.0-5.0); ALKALINE PHOSPHATASE 74 U/L (40-129); ALT/SGPT 18 U/L (<41); AST/SGOT 16 U/L (10.0-50.0); BLOOD UREA NITROGEN 15 mg/dL (8-23); CREATININE 0.8 mg/dL (0.7-1.2); EST GLOMERULAR FILTRATION RATE > 60 mL/min; GLUCOSE,RANDOM 179 mg/dL (74-109); TOTAL PROTEIN 5.5 g/dL (6.6-8.7)
[2017-11-03] MEDS: PANTOPRAZOLE SODIUM 40 MG TABLET PO SCH (07:05)
[2017-11-03] MEDS: LEVOTHYROXINE SODIUM 25 MCG TABLET PO SCH (07:05)
[2017-11-03] MEDS: NOVOLOG FLEXPEN (INSULIN ASPART) 100 UNITS/ML SQ SCH ×3 (10:31→17:36)
[2017-11-03] MEDS: LEVEMIR FLEXTOUCH 100 UNIT/ML INSULIN PEN SQ SCH ×2 (10:38→22:21)
[2017-11-03] MEDS: ENOXAPARIN 40 MG/0.4 ML SYR SQ SCH (10:40)
[2017-11-03] MEDS: NITROFURANTOIN MONO 100 MG CAPSULE PO SCH ×2 (10:40→19:32)
[2017-11-03] MEDS: ASPIRIN 81 MG TABEC PO SCH (10:41)
[2017-11-03] MEDS: LISINOPRIL 20 MG TABLET PO SCH (10:41)
[2017-11-03] MEDS: TAMSULOSIN HCL 0.4 MG CAP.ER.24H PO SCH (10:41)
[2017-11-03] MEDS: AMLODIPINE BESYLATE 5MG TAB PO SCH (10:41)
[2017-11-03] MEDS: TRAMADOL HCL 50 MG TABLET PO PRN (10:41)
--- NOTE | 2017-11-03 11:45 | Physical Therapy Tx Note ---
Physical Therapy Tx Note - Treatment Note Tolerated: Fair Total Time Spent With Patient: 30 Physical Therapy Tx Note: Detail (Pt lying reclined in bed upon arrival; awake, alert, cooperative for therapy. Rates neck pain 8/10 with movement, denies LACEY or dizziness. Assessed cervical spine ROM: flexion and extension are WNL but painful, rotation B is about 25% normal and painful. Sidebending L is markedly restricted (to neutral) and pt tends to keep head tilted to R. He cannot tell me if this is typical for him. Able to passively position him in neutral for myofascial release techniques and soft tissue mobilization to upper cervical paraspinal muscles, suboccipital muscles; mobilized elevated L first rib. C1 appears to be in neutral, but suboccipital space is markedly restricted. Instructed patient in small head nods (from neutral to 15-20 degrees flexion) and rotation B in pain-free range. Applied ice pack to back of neck, instructed patient to remove if became uncomfortable; notified nrsg. Placed call light and bedside table in reach.) Physical Therapy Problem List: Detail (1) Decreased exercise tolerance 2) Decreased LE strength 3) Assistance with ambulation 4) Neck pain) Physical Therapy Goals: 1) Patient will tolerate 30 minutes of physical activity. 2) Increased LE strength 1/3 muscle grade to improve overall functional mobility. 3) The patient will ambulate with the appropriate assistive device distances of 100 feet plus with minimal shortness of breath. 4 ) Decrease cervical pain to level 4 at highest using 0 to 10 pain scale. Prognosis: Good Physical Therapy Plan: PT one to two times a day M-F for gait training, transfer training, bed mobility, LE strengthening, manual therapy tehniques and endurance exercises.
--- NOTE | 2017-11-03 14:33 | Physical Therapy Tx Note ---
Physical Therapy Tx Note - Treatment Note Physical Therapy Tx Note: Detail (Patient was transferring and ambulating to bathroom with nursing upon CONTENT CURATOR arrival. Patient was transferred back into bed with nursing 20 minutes later. Patient declined treatment due to being too tired. Patient verbalized that he was continuing with head nods and turns that he was instructed this morning. Patient was left supine in bed with call light within reach.) Physical Therapy Problem List: Detail (1) Decreased exercise tolerance 2) Decreased LE strength 3) Assistance with ambulation 4) Neck pain) Physical Therapy Goals: 1) Patient will tolerate 30 minutes of physical activity. 2) Increased LE strength 1/3 muscle grade to improve overall functional mobility. 3) The patient will ambulate with the appropriate assistive device distances of 100 feet plus with minimal shortness of breath. 4 ) Decrease cervical pain to level 4 at highest using 0 to 10 pain scale. Physical Therapy Plan: PT one to two times a day M-F for gait training, transfer training, bed mobility, LE strengthening, manual therapy tehniques and endurance exercises.
[2017-11-04] MEDS: LEVOTHYROXINE SODIUM 25 MCG TABLET PO SCH (06:28)
[2017-11-04] MEDS: PANTOPRAZOLE SODIUM 40 MG TABLET PO SCH (06:28)
[2017-11-04] MEDS: NOVOLOG FLEXPEN (INSULIN ASPART) 100 UNITS/ML SQ SCH ×3 (08:42→17:54)
[2017-11-04] MEDS: NITROFURANTOIN MONO 100 MG CAPSULE PO SCH ×2 (08:46→16:47)
--- NOTE | 2017-11-04 09:33 | Physical Therapy Tx Note ---
Physical Therapy Tx Note - Treatment Note Tolerated: Good Total Time Spent With Patient: 30 Physical Therapy Tx Note: Detail (Patient still has complaints of neck pain, but reports that it is getting better. Patient did not rate the pain on a 0-10 scale. Patient SpO2 was measured at 91, and HR was 157 initially. The patient ambulated 50' with a front wheeled walker and CGA for safety, requiring verbal and tactile cues to help steer the walker. The patient also performed neck flexion, extension, side bending, and rotation stretches 1 x 5 bilaterally. The patient was IND with sit to stand transfer and tolerated the activity/exercises well with minimal shortness of breath.) Physical Therapy Problem List: Detail (1) Decreased exercise tolerance 2) Decreased LE strength 3) Assistance with ambulation 4) Neck pain) Physical Therapy Goals: 1) Patient will tolerate 30 minutes of physical activity. 2) Increased LE strength 1/3 muscle grade to improve overall functional mobility. 3) The patient will ambulate with the appropriate assistive device distances of 100 feet plus with minimal shortness of breath. 4 ) Decrease cervical pain to level 4 at highest using 0 to 10 pain scale. Prognosis: Good Physical Therapy Plan: PT one to two times a day M-F for gait training, transfer training, bed mobility, LE strengthening, manual therapy tehniques and endurance exercises.
[2017-11-04] MEDS: TAMSULOSIN HCL 0.4 MG CAP.ER.24H PO SCH (10:47)
[2017-11-04] MEDS: ASPIRIN 81 MG TABEC PO SCH (10:47)
[2017-11-04] MEDS: ENOXAPARIN 40 MG/0.4 ML SYR SQ SCH (10:47)
[2017-11-04] MEDS: LISINOPRIL 20 MG TABLET PO SCH (10:47)
[2017-11-04] MEDS: AMLODIPINE BESYLATE 5MG TAB PO SCH (10:48)
[2017-11-04] MEDS: LEVEMIR FLEXTOUCH 100 UNIT/ML INSULIN PEN SQ SCH ×2 (10:48→23:01)
--- NOTE | 2017-11-04 16:17 | Occupational Therapy Tx Note ---
Occupational Therapy Tx Note - Treatment Note Tolerated: Fair Total Time Spent With Patient: 50 Occupational Therapy Treatment Note: Detail (Modified Ind. supine to sit at EOB. Sit<>stand EOB to walker with VC d/t visual impairment, and VC to guide walker with functional mobility to bathroom. Pt. required max A to complete personal hygiene and clean-up after diarhea with attempts to use toilet, including donning and doffing elastic waist pants and briefs. Pt. felt very ill today and had poor endurance for functional activity. Nursing staff was notified. Session was concluded with pt. seated in arm chair, call light and bedside tray within reach. Plan: cont. POC.) Occupational Therapy Problem List: Detail (1. Decreased overall endurance needed for safe and Ind ADLs. 2. Decreased Ind with showering.) Occupational Therapy Goals: 1. Pt will demonstrate improved endurance to ensure safe and Ind self care and mobility. 2. Pt will be safe and Ind with showering in standing. Prognosis: Moderate Occupational Therapy Plan: OT 2-4 days per week to address endurance, self cares and functional mobility to allow return home with family.
[2017-11-05] MEDS: LEVOTHYROXINE SODIUM 25 MCG TABLET PO SCH (07:00)
[2017-11-05] MEDS: PANTOPRAZOLE SODIUM 40 MG TABLET PO SCH (07:01)
[2017-11-05] MEDS: NOVOLOG FLEXPEN (INSULIN ASPART) 100 UNITS/ML SQ SCH ×3 (08:27→17:42)
[2017-11-05] MEDS: NITROFURANTOIN MONO 100 MG CAPSULE PO SCH (08:27)
[2017-11-05] MEDS: ACETAMINOPHEN 500 MG TABLET PO PRN ×2 (08:30→22:36)
[2017-11-05] MEDS: LEVEMIR FLEXTOUCH 100 UNIT/ML INSULIN PEN SQ SCH ×2 (10:09→22:32)
[2017-11-05] MEDS: ENOXAPARIN 40 MG/0.4 ML SYR SQ SCH (10:11)
[2017-11-05] MEDS: TAMSULOSIN HCL 0.4 MG CAP.ER.24H PO SCH (10:11)
[2017-11-05] MEDS: ASPIRIN 81 MG TABEC PO SCH (10:11)
[2017-11-05] MEDS: AMLODIPINE BESYLATE 5MG TAB PO SCH (10:12)
[2017-11-05] MEDS: LISINOPRIL 20 MG TABLET PO SCH (10:12)
[2017-11-05] MEDS: TRAMADOL HCL 50 MG TABLET PO PRN (18:34)
[2017-11-05] MEDS: CYCLOBENZAPRINE 10MG TABLET PO PRN (22:36)
[2017-11-06] MEDS: LEVOTHYROXINE SODIUM 25 MCG TABLET PO SCH (07:41)
[2017-11-06] MEDS: PANTOPRAZOLE SODIUM 40 MG TABLET PO SCH (07:41)
[2017-11-06] MEDS: NOVOLOG FLEXPEN (INSULIN ASPART) 100 UNITS/ML SQ SCH ×3 (08:18→17:25)
[2017-11-06] MEDS: LEVEMIR FLEXTOUCH 100 UNIT/ML INSULIN PEN SQ SCH ×2 (09:50→22:20)
[2017-11-06] MEDS: ENOXAPARIN 40 MG/0.4 ML SYR SQ SCH (09:52)
[2017-11-06] MEDS: TAMSULOSIN HCL 0.4 MG CAP.ER.24H PO SCH (09:52)
[2017-11-06] MEDS: ASPIRIN 81 MG TABEC PO SCH (09:52)
[2017-11-06] MEDS: LISINOPRIL 20 MG TABLET PO SCH (09:53)
[2017-11-06] MEDS: AMLODIPINE BESYLATE 5MG TAB PO SCH (09:53)
[2017-11-07] MEDS: ACETAMINOPHEN 500 MG TABLET PO PRN (05:45)
[2017-11-07 06:43] LABS: ALB/GLOB RATIO 1.1 (1.1-1.8); ALKALINE PHOSPHATASE 102 U/L (40-129); ALT/SGPT 79 U/L (<41); AST/SGOT 45 U/L (10.0-50.0); BLOOD UREA NITROGEN 20 mg/dL (8-23); CREATININE 0.8 mg/dL (0.7-1.2); EST GLOMERULAR FILTRATION RATE > 60 mL/min; GLUCOSE,RANDOM 288 mg/dL (74-109); TOTAL PROTEIN 5.7 g/dL (6.6-8.7)
[2017-11-07] MEDS: LEVOTHYROXINE SODIUM 25 MCG TABLET PO SCH (06:49)
[2017-11-07] MEDS: PANTOPRAZOLE SODIUM 40 MG TABLET PO SCH (06:49)
[2017-11-07] MEDS: NOVOLOG FLEXPEN (INSULIN ASPART) 100 UNITS/ML SQ SCH ×3 (08:28→17:31)
[2017-11-07] MEDS: ENOXAPARIN 40 MG/0.4 ML SYR SQ SCH (10:17)
[2017-11-07] MEDS: LISINOPRIL 20 MG TABLET PO SCH (10:18)
[2017-11-07] MEDS: TRAMADOL HCL 50 MG TABLET PO PRN (10:18)
[2017-11-07] MEDS: ASPIRIN 81 MG TABEC PO SCH (10:18)
[2017-11-07] MEDS: AMLODIPINE BESYLATE 5MG TAB PO SCH (10:18)
[2017-11-07] MEDS: TAMSULOSIN HCL 0.4 MG CAP.ER.24H PO SCH (10:18)
[2017-11-07] MEDS: LEVEMIR FLEXTOUCH 100 UNIT/ML INSULIN PEN SQ SCH ×2 (10:19→22:17)
--- NOTE | 2017-11-07 15:52 | Physician Progress Note ---
Subjective - Date Date of Progress Note: 11/07/17 - Admitting Diagnosis Diagnosis: deconditioning due to ARF - Subjective Events since last encounter: Pt. has been complaining of neck/left shoulder pain, improving with prn ultram. Blood glucoses have ranged from 200-350, slowly increasing insulin- increased levemir to 11 units bid today. Pt. worked with PT/OT -Tue, will resume tomorrow. Nursing Care Plan Problem List Activity Intolerance (Swing Bed) Start: 11/01/17 14: 12 Freq: Status: Active Protocol: Created 11/01/17 14:13 SS (Rec: 11/01/17 14:13 SS [id number]) Altered Thought Process (Fall Risk) Start: 11/02/17 00: 08 Freq: Status: Active Protocol: Created 11/02/17 00:08 LPR (Rec: 11/02/17 00:08 LPR [id number]) Impaired Mobility (Fall Risk) Start: 11/02/17 00: 08 Freq: Status: Active Protocol: Created 11/02/17 00:08 LPR (Rec: 11/02/17 00:08 LPR [id number]) Knowledge Deficit (Swing Bed) Start: 11/01/17 14: 12 Freq: Status: Active Protocol: Created 11/01/17 14:13 SS (Rec: 11/01/17 14:13 SS [id number]) Pain (Swing Bed) Start: 11/01/17 14: 13 Freq: Status: Active Protocol: Created 11/01/17 14:13 SS (Rec: 11/01/17 14:13 SS [id number]) Risk for Injury (Fall Risk) Start: 11/02/17 00: 08 Freq: Status: Active Protocol: Created 11/02/17 00:08 LPR (Rec: 11/02/17 00:08 LPR [id number]) Urinary Retention Start: 11/01/17 19: 49 Freq: Status: Active Protocol: Created 11/01/17 19:49 LPR (Rec: 11/01/17 19:49 LPR [id number]) General - Cognitive Patterns Speech: Normal Thought Process: Intact Thought Content: Normal - Communication Select best description of speech pattern: Clear Speech Ability to express ideas and wants: Understood Understanding verbal content: Understands - Mood and Behavior Patterns Appearance: Well Groomed Mood: Normal Attitude: Cooperative Motor Activity: Calm Affect: Appropriate Hallucinations: Denies - Physical Functioning Activity Level: Up with assist x1 Turning: With partial assist ROM Ability: Moves all extremities Assistive Devices: Walker Ambulation Ability: Needs Assist Bed Mobility: Independent Transfer Ability: Needs Assist Bathing Ability: Needs Assist Personal Hygiene: Needs Assist Dressing Ability: Needs Assist Eating (Feeding) Ability: Needs Assist Toileting Ability: Needs Assist Administer Own Medication: Needs Assist - Continence Bowel Pattern: Normal for Patient Bladder Pattern: Retention Meds/Allergies - Allergies Allergies Allergy/AdvReac Type Severity Reaction Status Date / Time No Known Drug Allergies Allergy Verified 10/29/17 18:14 - Active Medications Current Medications Acetaminophen (Tylenol 500mg Tab) 1,000 mg PO Q6H PRN PRN Reason: PAIN - MILD TO MODERATE (1-7) Last Admin: 11/07/17 05:45 Dose: 1,000 mg Amlodipine Besylate (Norvasc) 5 mg PO DAILY [facility] Last Admin: 11/07/17 10:18 Dose: 5 mg Aspirin (Ecotrin (Ec)) 81 mg PO DAILY [facility] Last Admin: 11/07/17 10:18 Dose: 81 mg Cyclobenzaprine HCl (Flexeril) 10 mg PO QHS PRN PRN Reason: MUSCLE SPASMS Last Admin: 11/05/17 22:36 Dose: 10 mg Enoxaparin Sodium (Lovenox) 40 mg SQ DAILY [facility] Last Admin: 11/07/17 10:17 Dose: 40 mg Insulin Aspart (Novolog Flexpen) 8 unit SQ WMEALS [facility] Last Admin: 11/07/17 12:17 Dose: 8 unit Insulin Detemir (Levemir Flextouch) 11 unit SQ BID [facility] Levothyroxine Sodium (Synthroid) 25 mcg PO DAILYTHY [facility] Last Admin: 11/07/17 06:49 Dose: 25 mcg Lisinopril (Zestril) 20 mg PO DAILY [facility] Last Admin: 11/07/17 10:18 Dose: 20 mg Ondansetron HCl (Zofran) 4 mg IVP Q4H PRN PRN Reason: NAUSEA/VOMITING Pantoprazole Sodium (Protonix) 40 mg PO DAILYAC [facility] Last Admin: 11/07/17 06:49 Dose: 40 mg Tamsulosin HCl (Flomax) 0.4 mg PO DAILY [facility] Last Admin: 11/07/17 10:18 Dose: 0.4 mg Tramadol HCl (Ultram) 50 mg PO Q6H PRN PRN Reason: PAIN - MILD TO MODERATE (1-7) Last Admin: 11/07/17 10:18 Dose: 50 mg Objective - Vital Signs Vital Signs: Vital Signs - Last 24 Hrs Temp Pulse Resp BP Pulse Ox 11/07/17 08:00 98.6 F 70 18 134/55 94 L 11/06/17 20:00 98.7 F 83 16 130/74 93 L - General General Appearance: Alert, Oriented x3, Cooperative Limitations: Physical limitation (generalized weakness, deconditioning) - Head Head exam: Atraumatic, Normocephalic - ENT ENT exam: Normal exam, Mucous membranes moist, Normal external ear exam, Normal orophraynx, TM's normal bilaterally Ear exam: Normal external inspection. negative: External canal tenderness Nasal Exam: Normal inspection. negative: Discharge, Sinus tenderness Mouth exam: Normal external inspection, Tongue normal Teeth exam: Normal inspection. negative: Dental caries Throat exam: Normal inspection. negative: Tonsillar erythema, Tonsillar exudate - Respiratory Respiratory exam: Normal lung sounds bilaterally. negative: Respiratory distress - Cardiovascular Cardiovascular Exam: Regular rate, Normal rhythm, Normal heart sounds - GI/Abdominal GI/Abdominal exam: Soft, Normal bowel sounds. negative: Tenderness - Rectal Rectal exam: Deferred - exam: Other (Snider catheter in place, clear/yellow urine) - Extremities Extremities exam: Normal inspection, Full ROM, Normal capillary refill. negative: Tenderness - Neurological Neurological exam: Alert, Oriented X3, Reflexes normal H&P Results - Labs Result Diagrams: 11/07/17 06:05 Labs Last 24 Hours: Laboratory Results - last 24 hr 11/06/17 11/06/17 11/07/17 17:00 22:07 06:05 Sodium 137 Potassium 3.7 Chloride 98 Carbon Dioxide 28.0 Anion Gap 11.0 BUN 20 Creatinine 0.8 Estimated GFR > 60 POC Glucose 311 H 372 H Random Glucose 288 H Calcium 8.5 L Total Bilirubin 0.20 AST 45 ALT 79 H Alkaline Phosphatase 102 Total Protein 5.7 L Albumin 3.0 L Globulin 2.7 Albumin/Globulin Ratio 1.1 11/07/17 11/07/17 07:00 11:30 Sodium Potassium Chloride Carbon Dioxide Anion Gap BUN Creatinine Estimated GFR POC Glucose 264 H 378 H Random Glucose Calcium Total Bilirubin AST ALT Alkaline Phosphatase Total Protein Albumin Globulin Albumin/Globulin Ratio Discharge Potential - Discharge Needs Community Services Used Prior to Admission: Home Health Aide Patient Discharge Plan Description: Return Home Community Services Needed at Discharge: Home Health Aide Plan - Swing Bed Certification Initial Certification Due: 11/01/17 14 Day Re-Cert Due: 11/15/17 44 Day Re-Cert Due: 12/15/17 74 Day Re-Cert Due: 01/14/18 - Detailed Diagnosis and Plan (1) Physical deconditioning Current Visit: No Status: Acute Base Code: R53.81 - OTHER MALAISE Comment : 11/07/17: - limited mobility at home due to visual impairment. - deconditioning due to CRF - fall precautions, assist with toileting and ambulation. - Admitted to swing bed for continued PT/OT (2) Bladder outflow obstruction Current Visit: No Status: Acute Base Code: N32.0 - BLADDER-NECK OBSTRUCTION Comment: 11/07/17: - Continue Flomax 0.4mg daily for BPH - Consulted urology (Dr. Vazquez)- recommended indwelling snider catheter and f /u after d/c (3) Acute on chronic renal insufficiency Current Visit: No Status: Acute Base Code: N28.9 - DISORDER OF KIDNEY AND URETER, UNSPECIFIED; N18.9 - CHRONIC KIDNEY DISEASE, UNSPECIFIED Comment: 11/07: resolving - labs on this am: bun/Cr 20/0.8 - Will plan to repeat electrolytes q3 days while pt. in swing bed - avoid nephrotoxic medications. 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 (5) Diabetes mellitus, type II Current Visit: No Status: Acute Base Code: E11.9 - TYPE 2 DIABETES MELLITUS WITHOUT COMPLICATIONS Comment: 11/02/17: - Blood glucose here ranging 250-300. Increased novolog to 8 units (from 6) TIDAC yesterday and levemir to 11 (from 9) units BID today. Continue Lisinopril 20mg, ASA 81. - Hba1c 9.6 - ADA diet, POC glucose AcHs. (6) DVT prophylaxis Current Visit: No Status: Acute Base Code: [id number] - Comment: 11/07/17: - Lovenox 40mg QD - Ambulation with assistance due to blindess. (7) Full code status Current Visit: No Status: Acute Base Code: Z78.9 - OTHER SPECIFIED HEALTH STATUS Comment: 11/07/17: - Pt. remains full code status
[2017-11-07] MEDS: CYCLOBENZAPRINE 10MG TABLET PO PRN (22:17)
[2017-11-08] MEDS: PANTOPRAZOLE SODIUM 40 MG TABLET PO SCH (06:47)
[2017-11-08] MEDS: LEVOTHYROXINE SODIUM 25 MCG TABLET PO SCH (06:47)
[2017-11-08] MEDS: NOVOLOG FLEXPEN (INSULIN ASPART) 100 UNITS/ML SQ SCH ×4 (07:59→22:24)
[2017-11-08] MEDS: ENOXAPARIN 40 MG/0.4 ML SYR SQ SCH (10:18)
[2017-11-08] MEDS: TAMSULOSIN HCL 0.4 MG CAP.ER.24H PO SCH (10:18)
[2017-11-08] MEDS: LEVEMIR FLEXTOUCH 100 UNIT/ML INSULIN PEN SQ SCH ×3 (10:19→22:23)
[2017-11-08] MEDS: ASPIRIN 81 MG TABEC PO SCH (10:19)
[2017-11-08] MEDS: LISINOPRIL 20 MG TABLET PO SCH (10:19)
[2017-11-08] MEDS: AMLODIPINE BESYLATE 5MG TAB PO SCH (10:19)
[2017-11-08] MEDS: TRAMADOL HCL 50 MG TABLET PO PRN ×2 (11:18→22:21)
--- NOTE | 2017-11-08 12:55 | Occupational Therapy Tx Note ---
Occupational Therapy Tx Note - Treatment Note Tolerated: Good Total Time Spent With Patient: 35 (ther ex) Occupational Therapy Treatment Note: Detail (S: Pt resting in bed, agreeable to OT session. O: Supine to sit with verbal cues and moderate difficulty. Pt able to doff slipper socks and don velcro tennis shoes Indly although he had difficulty lifting feet up. Sit to stand and amb 15 feet with 2 wheeled walker and verbal cueing due to vision impairment. Stand to sit with verbal cues. Transported to rehab gym via wheelchair. Pt completed green theraband exercises as follows: Obey shoulder retraction, obey shoulder extension, obey shoulder flexion, obey shoulder abduction, obey elbow flexion, obey elbow extension x 10 reps each with verbal cues for technique. Pt very fatigued after exercises. Transported back to room via wheelchair and left up in chair. A: Pt continues with significant weakness that is impairing bed mobility and self cares although he is improved from last week.) Occupational Therapy Problem List: Detail (1. Decreased overall endurance needed for safe and Ind ADLs. 2. Decreased Ind with showering.) Occupational Therapy Goals: 1. Pt will demonstrate improved endurance to ensure safe and Ind self care and mobility. 2. Pt will be safe and Ind with showering in standing. Prognosis: Good Occupational Therapy Plan: OT 2-4 days per week to address endurance, self cares and functional mobility to allow return home with family.
--- NOTE | 2017-11-08 15:38 | Physical Therapy Tx Note ---
Physical Therapy Tx Note - Treatment Note Tolerated: Fair Total Time Spent With Patient: 30 Physical Therapy Tx Note: Detail (The patient was in bed when PT arrived. The patient achieved bed mobility with minimal/ mederate PA of 1. The patient initially ambulated with white cane and moderate PA of 2 5 feet x 1 with maximal verbal cues. The patient then ambulated with 2 wheeled walker a distance of 75 feet x 1 with CG and assist of one to steer walker. The patient required CG with sit to stand by pulling up on walker. The patient completed balance exercises including standing with a wide base of support and perturbations. The patient also completed scapular squeezes x 3 reps. The patient then ambulated 5 feet from bed to chair with white cane and moderate PA of one for a hand hold. The patient was able to find chair with use of cane and verbal cues . Feel the patient at this point needs a walker to ambulate. PT will continue gait training with cane for a few more sessions. Need for further PT sessions prior to discharge from inpatient PT was communicated to case assistant.) Physical Therapy Problem List: Detail (1) Decreased exercise tolerance 2) Decreased LE strength 3) Assistance with ambulation 4) Neck pain) Physical Therapy Goals: 1) Patient will tolerate 30 minutes of physical activity. 2) Increased LE strength 1/3 muscle grade to improve overall functional mobility. 3) The patient will ambulate with the appropriate assistive device distances of 100 feet plus with minimal shortness of breath. 4 ) Decrease cervical pain to level 4 at highest using 0 to 10 pain scale. Physical Therapy Plan: PT one to two times a day M-F for gait training, transfer training, bed mobility, LE strengthening, manual therapy tehniques and endurance exercises.
[2017-11-08] MEDS: CYCLOBENZAPRINE 10MG TABLET PO PRN (22:21)
[2017-11-09] MEDS: NOVOLOG FLEXPEN (INSULIN ASPART) 100 UNITS/ML SQ SCH ×4 (06:37→23:02)
[2017-11-09] MEDS: PANTOPRAZOLE SODIUM 40 MG TABLET PO SCH (06:38)
[2017-11-09] MEDS: LEVOTHYROXINE SODIUM 25 MCG TABLET PO SCH (06:38)
[2017-11-09] MEDS: LEVEMIR FLEXTOUCH 100 UNIT/ML INSULIN PEN SQ SCH ×3 (09:17→23:04)
--- NOTE | 2017-11-09 10:41 | Medical Records Consult ---
DATE OF CONSULTATION: 11/08/2017 HISTORY OF PRESENT ILLNESS: The patient was seen in followup today. One week ago, I was initially consulted to evaluate the patient for moderately severe urinary retention. At that time, he was being straight catheterized for anywhere from 300-500 mL. He was also having problems with constipation which was being addressed. Currently he has a Orr catheter and says that he is quite happy having the catheter in. Has noted before he has trouble with vision and he is able to have no help at home in terms of being able to perform intermittent self-catheterization. Past medical history and surgical history and chart notes from within the past week have all been reviewed. FINAL IMPRESSION: 1. 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 2. Constipation. Appears resolved. 3. Diabetes. 4. History of brain abscess. PLAN: I would like to leave the Orr catheter in place until 1 day prior to anticipated discharge. Voiding trial should be undertaken on that day. If he continues to retain with postvoid residuals greater than 300 mL, then I would recommend a Orr catheter be left in place and the patient will need to have home nursing arranged to have chronic Orr catheter changed on a monthly basis. My hope is that now that his condition has improved and constipation appears to be resolved, he will be able to empty his bladder more effectively. If that is not the case, then he is quite content with keeping a chronic Orr catheter to be changed by home nursing indefinitely. Thank you again, Dr. Morejon, for the opportunity to see this very pleasant patient. I have communicated my findings and recommendations to the nursing staff as well. DANILO
--- NOTE | 2017-11-09 11:12 | Physical Therapy Tx Note ---
Physical Therapy Tx Note - Treatment Note Tolerated: Good Total Time Spent With Patient: 30 Physical Therapy Tx Note: Detail (Patient still reports neck pain. Patient ambulated 5'x1 and 22'x1 with the use of his white cane and CGA of 2 for safety , and balance. Patient still requires verbal cues for directions. Manual therapy techiniques including MFR and massage were done on the patients neck, the patient reported feeling better after treatment. Patient then had a hot pack on the back of his neck and shoulders for 10 minutes. Patient was left up in chair with call light.) Physical Therapy Problem List: Detail (1) Decreased exercise tolerance 2) Decreased LE strength 3) Assistance with ambulation 4) Neck pain) Physical Therapy Goals: 1) Patient will tolerate 30 minutes of physical activity. 2) Increased LE strength 1/3 muscle grade to improve overall functional mobility. 3) The patient will ambulate with the appropriate assistive device distances of 100 feet plus with minimal shortness of breath. 4 ) Decrease cervical pain to level 4 at highest using 0 to 10 pain scale. Prognosis: Good Physical Therapy Plan: PT one to two times a day M-F for gait training, transfer training, bed mobility, LE strengthening, manual therapy tehniques and endurance exercises.
[2017-11-09] MEDS: ENOXAPARIN 40 MG/0.4 ML SYR SQ SCH (12:13)
[2017-11-09] MEDS: AMLODIPINE BESYLATE 5MG TAB PO SCH (12:14)
[2017-11-09] MEDS: ASPIRIN 81 MG TABEC PO SCH (12:14)
[2017-11-09] MEDS: TRAMADOL HCL 50 MG TABLET PO PRN ×2 (12:15→23:01)
[2017-11-09] MEDS: LISINOPRIL 20 MG TABLET PO SCH (12:15)
[2017-11-09] MEDS: TAMSULOSIN HCL 0.4 MG CAP.ER.24H PO SCH (12:15)
--- NOTE | 2017-11-09 15:04 | Physical Therapy Tx Note ---
Physical Therapy Tx Note - Treatment Note Tolerated: Good Total Time Spent With Patient: 25 Physical Therapy Tx Note: Detail (Patient was up in chair upon arrival, with no compalints of pain. The patient ambulated 25'x1 and 5'x1 with his white cane and CGA of 2. The patient had one minimal loss of balance where min assist was provided to regain balance. The patient requires verbal cues for directions. The patient reported being fatigued after ambulating. The patient is IND with all bed mobility and transfers. Patient was left in bed with call light.) Physical Therapy Problem List: Detail (1) Decreased exercise tolerance 2) Decreased LE strength 3) Assistance with ambulation 4) Neck pain) Physical Therapy Goals: 1) Patient will tolerate 30 minutes of physical activity. 2) Increased LE strength 1/3 muscle grade to improve overall functional mobility. 3) The patient will ambulate with the appropriate assistive device distances of 100 feet plus with minimal shortness of breath. 4 ) Decrease cervical pain to level 4 at highest using 0 to 10 pain scale. Prognosis: Good Physical Therapy Plan: PT one to two times a day M-F for gait training, transfer training, bed mobility, LE strengthening, manual therapy tehniques and endurance exercises.
[2017-11-09] MEDS ORDERED: ZINC OXIDE 28.35 GM TUBE TOP PRN (21:20)
[2017-11-09] MEDS: CYCLOBENZAPRINE 10MG TABLET PO PRN (23:00)
[2017-11-10] MEDS: LEVOTHYROXINE SODIUM 25 MCG TABLET PO SCH (07:46)
[2017-11-10] MEDS: PANTOPRAZOLE SODIUM 40 MG TABLET PO SCH (07:46)
[2017-11-10] MEDS: LEVEMIR FLEXTOUCH 100 UNIT/ML INSULIN PEN SQ SCH ×3 (08:20→22:33)
[2017-11-10] MEDS: NOVOLOG FLEXPEN (INSULIN ASPART) 100 UNITS/ML SQ SCH ×4 (08:46→22:31)
[2017-11-10] MEDS: ENOXAPARIN 40 MG/0.4 ML SYR SQ SCH (10:51)
[2017-11-10] MEDS: TAMSULOSIN HCL 0.4 MG CAP.ER.24H PO SCH (10:52)
[2017-11-10] MEDS: ASPIRIN 81 MG TABEC PO SCH (10:52)
[2017-11-10] MEDS: LISINOPRIL 20 MG TABLET PO SCH (10:52)
--- NOTE | 2017-11-10 10:58 | Physical Therapy Tx Note ---
Physical Therapy Tx Note - Treatment Note Tolerated: Good Total Time Spent With Patient: 40 Physical Therapy Tx Note: Detail (Patient states no new complaints, neck a little sore. Patient transferred supine to sit min assist x1. Patient transferred sit to and from stand independently. Patient performed the following balance exercises x30 seconds each: DLS, feet together, DLS with looking up and down, DLS with looking side to side, and stride stance. Patient required one seated rest break with balance exercises due to fatigue. Patient transferred sit to and from stand independently except verbal cueing for hand placement. Patient ambulated 2 x 13 feet with wheeled walker SBA assist only for steering walker and cueing for directions. Patient transferred sit to and from stand CGA x1 verbal cueing required for hand placement. Patient performed sit to and from stand transfer x5. Patient transferred sit to supine min assist x1 to guide LEs. Patient required verbal cueing for positioning in bed. Patient tolerated treatment well. Patient reports tired and neck painful after treatment. Patient was left supine in bed with call light within reach and bed alarm on.) Physical Therapy Problem List: Detail (1) Decreased exercise tolerance 2) Decreased LE strength 3) Assistance with ambulation 4) Neck pain) Physical Therapy Goals: 1) Patient will tolerate 30 minutes of physical activity. 2) Increased LE strength 1/3 muscle grade to improve overall functional mobility. 3) The patient will ambulate with the appropriate assistive device distances of 100 feet plus with minimal shortness of breath. 4 ) Decrease cervical pain to level 4 at highest using 0 to 10 pain scale. Prognosis: Good Physical Therapy Plan: PT one to two times a day M-F for gait training, transfer training, bed mobility, LE strengthening, manual therapy tehniques and endurance exercises.
[2017-11-10] MEDS: AMLODIPINE BESYLATE 5MG TAB PO SCH (14:44)
--- NOTE | 2017-11-10 17:36 | Physical Therapy Tx Note ---
Physical Therapy Tx Note - Treatment Note Tolerated: Good Total Time Spent With Patient: 40 Physical Therapy Tx Note: Detail (Pt up in chair upon arrival, awake/alert, cooperative for therapy. Discussed mobility at home, typical activity and usual method of navigating home environment. Pt states he sometimes uses white cane, but mostly feels along the fuentes or furniture. He is able to get himself from his room, to the bathroom, kitchen, and living room; he states that he has stopped walking in the yard because "he got lost last time he was out there". Independent w/sit/stand transfer from chair. Ambulated with white cane with verbal cuing and CGA from bedside, out to bejarano, down to next room and back to bedside (about 58 feet). Fatigued but no loss of balance; short strides and reaches out with free hand for objects/fuentes. Discussed with patient and with hospital case work aide having rx for walker and having home PT evaluate mobility within home, as walker may present problem with navigating. Pt agreed; CM notified. Left up in chair with call light and bedside table in reach; nrsg notified.) Physical Therapy Problem List: Detail (1) Decreased exercise tolerance 2) Decreased LE strength 3) Assistance with ambulation 4) Neck pain) Physical Therapy Goals: 1) Patient will tolerate 30 minutes of physical activity. 2) Increased LE strength 1/3 muscle grade to improve overall functional mobility. 3) The patient will ambulate with the appropriate assistive device distances of 100 feet plus with minimal shortness of breath. 4 ) Decrease cervical pain to level 4 at highest using 0 to 10 pain scale. Prognosis: Good Physical Therapy Plan: PT one to two times a day M-F for gait training, transfer training, bed mobility, LE strengthening, manual therapy tehniques and endurance exercises.
[2017-11-11] MEDS: LEVOTHYROXINE SODIUM 25 MCG TABLET PO SCH (07:13)
[2017-11-11] MEDS: PANTOPRAZOLE SODIUM 40 MG TABLET PO SCH (07:13)
[2017-11-11] MEDS: LEVEMIR FLEXTOUCH 100 UNIT/ML INSULIN PEN SQ SCH ×2 (08:02→10:12)
--- NOTE | 2017-11-11 09:22 | Discharge Summary ---
Providers Discharge Summary Date: 11/11/17 Date of admission: 11/01/17 13:17 Expected Date of Discharge: 11/11/17 Attending physician: ROGER EWISS Primary care physician: ROGER WEISS Consults: Consult Orders 11/01/17 14:53 Consult NOW Consulting Provider: VAMSI LEBLANC Physician Instructions: Reason For Exam: bladder outlet obstruction Physical Exam - Vital Signs Vital Signs: Vital Signs - Last 24 Hrs Temp Pulse Resp BP BP Pulse Ox 11/11/17 07:58 98.6 F 82 16 141/62 96 11/10/17 22:37 99.2 F 76 16 128/62 95 11/10/17 17:00 98.6 F 73 12 136/65 97 - General General Appearance: Alert, Oriented x3, Cooperative Limitations: Physical limitation (blindness) - Head Head exam: Atraumatic, Normocephalic - ENT ENT exam: Normal exam, Normal external ear exam, Normal orophraynx Ear exam: Normal external inspection. negative: External canal tenderness Nasal Exam: Normal inspection. negative: Discharge, Sinus tenderness Mouth exam: Normal external inspection, Tongue normal Teeth exam: Normal inspection. negative: Dental caries Throat exam: Normal inspection. negative: Tonsillar erythema, Tonsillar exudate - Respiratory Respiratory exam: Normal lung sounds bilaterally. negative: Respiratory distress - Cardiovascular Cardiovascular Exam: Regular rate, Normal rhythm, Normal heart sounds - GI/Abdominal GI/Abdominal exam: Soft, Normal bowel sounds. negative: Tenderness - Rectal Rectal exam: Deferred - exam: Other (Snider catheter in place, clear/yellow urine) - Extremities Extremities exam: Normal inspection, Full ROM, Normal capillary refill. negative: Tenderness - Neurological Neurological exam: Alert, Oriented X3 - Psychiatric Psychiatric exam: Normal affect, Normal mood. negative: Agitated, Anxious, Depressed Hospitalization - Hospitalization Admission Diagnosis: deconditioning due to ARF - Hospitalization Course Disposition: Home Health Service Hospital Course: Mr. Guerrero is a 66 y/o diabetic patient who presented to the ED on 10/30 with complaint of abdominal pain, distension and difficulty having a bowel movement x 1 week. The patient said that he usually uses the rest room daily but over the past few days his abdomen became increasingly painful. He also has a history of urinary retention requiring straight cath PRN but denies any symptoms of pain or burning. The patient is blind and lives with his elderly mother but says that he his somewhat independent but gets help from his younger brother who also lives there. He is a poor historian. On arrival to the ED a CT of the abdomen was done which revealed large amount of fecal matter but no other acute process. The patient was straight catheterized in the ED and 3 liters of urine was obtained. No fecal occult blood was noted and urinalysis was negative for infection. Pt had 1-2 bowel movements daily during admission and constipation resolved. Urology was consulted for obstruction and Dr. Leblanc recommended snider catheter. PT/OT worked with the pt for his de-conditioning during his hospital stay. His insulin regimen was titrated up given consistent hyperglycemia. Upon Discharge, void trial was done but pt was still retaining 900ml. Per Dr. Leblanc he recommended that the pt be discharged with the snider in place given his continued retention and to follow up with him outpt. Home PT/OT was scheduled as well as an appointment with me for follow up on 2017. All changes in medications were discussed in detail with the care-givers. Abnormal Labs: Abnormal Lab Results 11/01/17 11/01/17 11/02/17 Range/Units 17:56 22:00 08:05 POC Glucose 152 H 152 H 63 L (70-110) mg/dL Random Glucose (74-109) mg/dL Calcium (8.8-10.2) mg/dL ALT (<41) U/L Total Protein (6.6-8.7) g/dL Albumin (4.0-5.0) g/dL 11/02/17 11/02/17 11/03/17 Range/Units 11:45 21:22 06:13 POC Glucose 298 H 387 H (70-110) mg/dL Random Glucose 179 H (74-109) mg/dL Calcium 8.0 L (8.8-10.2) mg/dL ALT (<41) U/L Total Protein 5.5 L (6.6-8.7) g/dL Albumin 2.9 L (4.0-5.0) g/dL 11/03/17 11/04/17 11/04/17 Range/Units 22:00 07:30 11:30 POC Glucose 329 H 253 H 318 H (70-110) mg/dL Random Glucose (74-109) mg/dL Calcium (8.8-10.2) mg/dL ALT (<41) U/L Total Protein (6.6-8.7) g/dL Albumin (4.0-5.0) g/dL 11/04/17 11/04/17 11/05/17 Range/Units 17:00 21:55 07:30 POC Glucose 320 H 329 H 264 H (70-110) mg/dL Random Glucose (74-109) mg/dL Calcium (8.8-10.2) mg/dL ALT (<41) U/L Total Protein (6.6-8.7) g/dL Albumin (4.0-5.0) g/dL 11/05/17 11/05/17 11/05/17 Range/Units 11:30 17:00 22:05 POC Glucose 273 H 339 H 366 H (70-110) mg/dL Random Glucose (74-109) mg/dL Calcium (8.8-10.2) mg/dL ALT (<41) U/L Total Protein (6.6-8.7) g/dL Albumin (4.0-5.0) g/dL 11/06/17 11/06/17 11/06/17 Range/Units 07:30 11:43 17:00 POC Glucose 302 H 367 H 311 H (70-110) mg/dL Random Glucose (74-109) mg/dL Calcium (8.8-10.2) mg/dL ALT (<41) U/L Total Protein (6.6-8.7) g/dL Albumin (4.0-5.0) g/dL 11/06/17 11/07/17 11/07/17 Range/Units 22:07 06:05 07:00 POC Glucose 372 H 264 H (70-110) mg/dL Random Glucose 288 H (74-109) mg/dL Calcium 8.5 L (8.8-10.2) mg/dL ALT 79 H (<41) U/L Total Protein 5.7 L (6.6-8.7) g/dL Albumin 3.0 L (4.0-5.0) g/dL 11/07/17 11/07/17 11/07/17 Range/Units 11:30 17:00 22:04 POC Glucose 378 H 284 H 269 H (70-110) mg/dL Random Glucose (74-109) mg/dL Calcium (8.8-10.2) mg/dL ALT (<41) U/L Total Protein (6.6-8.7) g/dL Albumin (4.0-5.0) g/dL 11/08/17 11/08/17 11/08/17 Range/Units 07:50 11:30 17:00 POC Glucose 303 H 367 H 220 H (70-110) mg/dL Random Glucose (74-109) mg/dL Calcium (8.8-10.2) mg/dL ALT (<41) U/L Total Protein (6.6-8.7) g/dL Albumin (4.0-5.0) g/dL 11/08/17 11/09/17 11/09/17 Range/Units 22:08 06:27 11:30 POC Glucose 359 H 149 H 234 H (70-110) mg/dL Random Glucose (74-109) mg/dL Calcium (8.8-10.2) mg/dL ALT (<41) U/L Total Protein (6.6-8.7) g/dL Albumin (4.0-5.0) g/dL 11/09/17 11/09/17 11/09/17 Range/Units 12:36 18:19 22:00 POC Glucose 234 H 226 H 252 H (70-110) mg/dL Random Glucose (74-109) mg/dL Calcium (8.8-10.2) mg/dL ALT (<41) U/L Total Protein (6.6-8.7) g/dL Albumin (4.0-5.0) g/dL 11/10/17 11/10/17 Range/Units 12:25 23:56 POC Glucose 121 H 117 H (70-110) mg/dL Random Glucose (74-109) mg/dL Calcium (8.8-10.2) mg/dL ALT (<41) U/L Total Protein (6.6-8.7) g/dL Albumin (4.0-5.0) g/dL Condition at Discharge: (1) Good VTE Discharge VTE Reason For No Overlap Therapy: Not Indicated Discharge Medications - Discharge Medications Home Medications: Ambulatory Orders Lisinopril 20 mg PO DAILY 01/19/14 [Last Taken 1 Day Ago ~10/28/17] Aspirin [Aspirin EC] 81 mg PO QHS 02/15/14 [Last Taken 1 Day Ago ~10/28/17] Multivitamin [Multi-Vitamin Daily] 1 each PO DAILY 02/15/14 [Last Taken 1 Day Ago ~10/28/17] Insulin Aspart [Novolog Flexpen] 1 unit SQ QIDACHS ml 11/11/17 [Last Taken Unknown] Insulin Detemir [Levemir Flextouch] 32 unit SQ BID syringe 11/11/17 [Last Taken Unknown] Discharge Plan - Discharge Instructions Activity at Discharge: Increase Activity as Tolerated Diet at Discharge: Advance to Usual Diet Instructions: Snider Catheter Placement and Care (DC) Additional Instructions: Follow up with Dr. Rosado [place], Nov 22 at 8:40AM at [facility]. Levemir 32 units in the morning and before bedtime. Check glucose before each meal and before bedtime. Administer novolog per sliding scale below if needed. <150: 0 units 151-200: 2 units 201-250: 4 units 251-300: 6 units 301-350: 8 units 351-400: 10 units >400: 12 units Keep a log with all the glucose checks and how many units were administered each day and bring to your appointment with Dr. Rosado. Quality Measures - Quality Measures Quality Measures: Documentation of Current Medications in Medical Record, Screening for High Blood Pressure and F/U Documented - Current Medications Quality Measure: Measure #130: Documentation of Current Medications Documentation of Current Medications: <Current Medications Documented/Reviewed> [G8427] - Blood Pressure Screening Quality Measure: Screening for High Blood Pressure and Follow-Up Documented Does Patient Have Any of the Following: Active Dx of HTN Blood Pressure Classification: Normal BP Reading Systolic Measurement: 113 Diastolic Measurement: 73 Screening for High Blood Pressure: Patient Exclusion, Hx of HTN [G9744] - Elder Abuse Suspicion Index EASI Reference Information: Devon GUPTA, Anselmo Zapata, Eh D, Yakelin Mark.Development and validation of a tool to assist physicians identification of elder abuse: The Elder Abuse Suspicion Index (EASI ). Journal of Elder Abuse and Neglect, 2008; 20 (3): 276-300.
[2017-11-11] MEDS: ASPIRIN 81 MG TABEC PO SCH (10:10)
[2017-11-11] MEDS: TAMSULOSIN HCL 0.4 MG CAP.ER.24H PO SCH (10:10)
[2017-11-11] MEDS: LISINOPRIL 20 MG TABLET PO SCH (10:10)
[2017-11-11] MEDS: AMLODIPINE BESYLATE 5MG TAB PO SCH (10:10)
[2017-11-11] MEDS: NOVOLOG FLEXPEN (INSULIN ASPART) 100 UNITS/ML SQ SCH (10:13)
--- NOTE | 2017-11-11 10:15 | Rehab Discharge Summary ---
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 Eye surgery, T&A. PMH - Respiratory Hx Respiratory Disorders No PMH - Cardiovascular Hx Cardiovascular Disorders Yes Hx Abnormal EKG No Hx Cardiac Catheterization No Hx Chest Pain No Hx Congestive Heart Failure No Hx Deep Vein Thrombosis No Hx Edema No Hx Heart Attack No Hx Hypertension Yes Hx Hypotension No Hx Irregular Heartbeat No Hx Palpitations No Hx Pacemaker/Defibrillator No Hx Vascular Disease No Hx Transient Ischemic Attacks No (TIA) PMH - Neuro Hx Neurological Disorders Yes Hx Brain Tumor Yes: abscess Hx Cerebrovascular Accident No Hx Dementia No Hx Dizziness Yes Hx Headaches Yes Hx Neuropathy No Hx Parkinson's Disease No Hx Seizures No Hx Speech Problem No Hx Syncope No Hx Transient Ischemic Attacks No (TIA) Comment: Surgery for brain abscess in 1976. PMH - GI Hx Gastrointestinal Disorders Yes Hx Abdominal Pain No Hx Celiac Disease No Hx Crohn's Disease No Hx Diverticulitis No Hx Gastrointestinal Bleed No Hx Gastroesophageal Reflux No Hx Hepatitis/Jaundice No Hx Hiatal Hernia No Hx Irritable Bowel No Hx Liver Disease No Hx Nausea/Vomiting No Hx Obstructive Bowel No Hx Pancreatitis No Hx Rectal Bleeding No Hx Ulcer No Hx Weight Loss/Weight Gain No Comment: Chronic constipation PMH - Hx Genitourinary Disorders Yes Hx Bladder Problem Yes Hx Dialysis No Hx Kidney Stones No Hx Prostate Problems Yes PMH - Endocrine Hx Endocrine Disorders Yes Hx Diabetes Yes: IDDM Hx Thyroid Disease Yes Comment: Just started Levothyroxine on 01/10/14 PMH - Musculoskeletal Hx Musculoskeletal Disorders No PMH - Psych Hx Psychiatric Problems No PMH - Hematology/Oncology Hx Hematology/Oncology No Disorders Premorbid Status: Detail (Patient lives with mother in a 2 story house with basement, he stays on the main level. He has a ramp at the entrance. He has a tub/shower combination, no grab bars and an elevated toilet with grab bars. He uses a cane for mobility due to visual impairment. He reports being Ind with self cares and mobility as well as using the microwave for light meal prep. He has home health aides 2 times daily to assist with home mgmt, meal prep and laundry.) Precautions: [place], Fall, Other (Legally blind) Subjective Information - Subjective Information Per Patient Objective Data - Pain Pain Present: No - Mental Status Patient Orientation: Oriented x3 - Visual Perception Deficit (Pt is legally blind) - ROM Within normal limits (Obey UE AROM WNL) - Strength/Tone Within normal limits (Obey UE strength WNL) - Coordination Appears within normal limits for therapeutic activities - Bed Mobility Needs Assist (Pt requires verbal cues for bed mobility due to visual impairment) - Transfers Independent (Ind with sit to stand) - Balance Balance Sitting: Good Balance Standing: Fair - Sensation Intact - Gait Detail (Pt ambulating with 2 wheeled walker with verbal cues due to impaired vision.) - ADL's/IADL's Detail (Pt able to complete showering in sitting and standing with assist for back and CG assist for standing to wash jimmy area/buttocks. Pt able to complete total body dressing Indly.) Therapy Assessment - Therapy Assessment Detail (Pt demonstrated improved Ind with self cares and with overall endurance. ) Problem List - Problem List Physical Therapy Problem List: Detail (1) Decreased exercise tolerance 2) Decreased LE strength 3) Assistance with ambulation 4) Neck pain) Occupational Therapy Problem List: Detail (1. Decreased overall endurance needed for safe and Ind ADLs. 2. Decreased Ind with showering.) Goals - Goals Physical Therapy Goals: 1) Patient will tolerate 30 minutes of physical activity. 2) Increased LE strength 1/3 muscle grade to improve overall functional mobility. 3) The patient will ambulate with the appropriate assistive device distances of 100 feet plus with minimal shortness of breath. 4 ) Decrease cervical pain to level 4 at highest using 0 to 10 pain scale. Occupational Therapy Goals: Goals partially met: 1. Pt will demonstrate improved endurance to ensure safe and Ind self care and mobility. 2. Pt will be safe and Ind with showering in standing. Prognosis - Prognosis Good Plan - Plan Physical Therapy Plan: PT one to two times a day M-F for gait training, transfer training, bed mobility, LE strengthening, manual therapy tehniques and endurance exercises. Occupational Therapy Plan: Pt discharging home with family today. Recommend continued OT to address safety and Ind in the home setting.
--- NOTE | 2017-11-11 12:32 | Rehab Discharge Summary ---
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 Eye surgery, T&A. PMH - Respiratory Hx Respiratory Disorders No PMH - Cardiovascular Hx Cardiovascular Disorders Yes Hx Abnormal EKG No Hx Cardiac Catheterization No Hx Chest Pain No Hx Congestive Heart Failure No Hx Deep Vein Thrombosis No Hx Edema No Hx Heart Attack No Hx Hypertension Yes Hx Hypotension No Hx Irregular Heartbeat No Hx Palpitations No Hx Pacemaker/Defibrillator No Hx Vascular Disease No Hx Transient Ischemic Attacks No (TIA) PMH - Neuro Hx Neurological Disorders Yes Hx Brain Tumor Yes: abscess Hx Cerebrovascular Accident No Hx Dementia No Hx Dizziness Yes Hx Headaches Yes Hx Neuropathy No Hx Parkinson's Disease No Hx Seizures No Hx Speech Problem No Hx Syncope No Hx Transient Ischemic Attacks No (TIA) Comment: Surgery for brain abscess in 1976. PMH - GI Hx Gastrointestinal Disorders Yes Hx Abdominal Pain No Hx Celiac Disease No Hx Crohn's Disease No Hx Diverticulitis No Hx Gastrointestinal Bleed No Hx Gastroesophageal Reflux No Hx Hepatitis/Jaundice No Hx Hiatal Hernia No Hx Irritable Bowel No Hx Liver Disease No Hx Nausea/Vomiting No Hx Obstructive Bowel No Hx Pancreatitis No Hx Rectal Bleeding No Hx Ulcer No Hx Weight Loss/Weight Gain No Comment: Chronic constipation PMH - Hx Genitourinary Disorders Yes Hx Bladder Problem Yes Hx Dialysis No Hx Kidney Stones No Hx Prostate Problems Yes PMH - Endocrine Hx Endocrine Disorders Yes Hx Diabetes Yes: IDDM Hx Thyroid Disease Yes Comment: Just started Levothyroxine on 01/10/14 PMH - Musculoskeletal Hx Musculoskeletal Disorders No PMH - Psych Hx Psychiatric Problems No PMH - Hematology/Oncology Hx Hematology/Oncology No Disorders Premorbid Status: Detail (Patient lives with mother in a 2 story house with basement, he stays on the main level. He has a ramp at the entrance. He has a tub/shower combination, no grab bars and an elevated toilet with grab bars. He uses a cane for mobility due to visual impairment. He reports being Ind with self cares and mobility as well as using the microwave for light meal prep. He has home health aides 2 times daily to assist with home mgmt, meal prep and laundry.) Social History: Detail Precautions: [place], Fall, Other (Legally blind) Objective Data - Pain Pain Present: Yes (Neck Pain. Not rated on the 0-10 scale.) - Mental Status Patient Orientation: Oriented x3 - Visual Perception Deficit (Patient is legally blind.) - ROM Not within normal limits (Patient has limited neck ROM due to poor posture.) - Strength/Tone Not within normal limits (Patient LE strength is limited.) - Bed Mobility Independent (Patient is IND with supine to sit transfers. Patient occasionally requires verbal/tactile cues for hand placement.) - Transfers Independent (Patient is IND with sit to stand transfers with SBA for safety.) - Balance Balance Sitting: Good Balance Standing: Fair - Gait Detail (Patient ambulates household distances with CGA when using his white cane , and SBA when using a front wheeled walker. The patient requires assistance with steering the walker and giving directions.) Therapy Assessment - Therapy Assessment Detail (Patient has progressed well with mobility. Feel patient would benefit from continued PT in home to work on finding appropriate AD to ambulate throughout his home. Patient would also benefit from continued gait training, balance training, LE strengthening exercises, and physical endurance activities. ) Patient Education - Patient Education Teaching Topic: Exercise/Activity (Patient was educated on neck stretches ( flexion, extension, side bending, and rotation) to help with neck pain.) Response: Return Demonstration, Verbalize Understanding Teaching Method: Demonstration, Audiovisual Teaching Recipient: Patient Barriers To Learning: Age Related Problem List - Problem List Physical Therapy Problem List: Detail (1) Decreased exercise tolerance 2) Decreased LE strength 3) Assistance with ambulation 4) Neck pain) Occupational Therapy Problem List: Detail (1. Decreased overall endurance needed for safe and Ind ADLs. 2. Decreased Ind with showering.) Goals - Goals Physical Therapy Goals: 1) Patient will tolerate 30 minutes of physical activity (Goal Not Met). 2) Increased LE strength 1/3 muscle grade to improve overall functional mobility. (Goal Not Met). 3) The patient will ambulate with the appropriate assistive device distances of 100 feet plus with minimal shortness of breath. (Goal Not Met). 4) Decrease cervical pain to level 4 at highest using 0 to 10 pain scale. (Goal Met) Occupational Therapy Goals: Goals partially met: 1. Pt will demonstrate improved endurance to ensure safe and Ind self care and mobility. 2. Pt will be safe and Ind with showering in standing. Prognosis - Prognosis Good Plan - Plan Physical Therapy Plan: Patient will be discharged. Recommend home PT to continue working on patients function with in his home. Occupational Therapy Plan: Pt discharging home with family today. Recommend continued OT to address safety and Ind in the home setting.
== END 2017-11-11 10:32 | disposition home health service (06) | DRG 948 ==
LOC: MEDSURG 13:17
PROVIDERS: ADMIT Internal Medicine; ATTEND Internal Medicine
DX: R53.81 Other malaise (principal); N28.9 Disorder of kidney and ureter, unspecified; N32.0 Bladder-neck obstruction; E11.9 Type 2 diabetes mellitus without complications; Z79.4 Long term (current) use of insulin; H54.7 Unspecified visual loss; I10 Essential (primary) hypertension; Z86.79 Personal history of other diseases of the circulatory system
CPT/HCPCS: 36416; 80053; 82948; 94760; 97110; 97140; 97530; 97535; 99304; 99309; 99316; J1650

== ENCOUNTER 2017-12-18 01:26 | Emergency (ER) | payer MEDICARE, MEDICAID ==
[2017-12-18] MEDS ORDERED: 0.9 % SODIUM CHLORIDE 1000ML 1,000 ML IV PRN (01:54)
[2017-12-18] MEDS ORDERED: DILTIAZEM 25MG/5ML VIAL IV ONE ×2 (01:58→02:36)
--- NOTE | 2017-12-18 01:59 | Emergency Department Record ---
History of Present Illness - General Chief Complaint: Altered Mental Status Stated Complaint: CONSTIPATION Time Seen by Provider: 12/18/17 01:32 Source: Patient, RN notes reviewed Mode of Arrival: EMS - History of Present Illness Initial Comments: patient was making a different snoring sound and family could not wake him up and EMS called and they transported him to the hospital. Sister here with him and she is from [facility]. PCP is visiting physicians. Patient denies chest pain and no dyspnea and sister said he was not arousing but just before EMS arrived he wake up. [facility] brain tumor removed at [place]. Blind with left eye removed ,DM insulin type one and he has hasn't been able to see because of the DM. He also has a snider placed one month ago. Upon arrival to the ED he was in Atrial fib with a fast ventricular response. Sister denies him having this before. Bilateral neuropathy of the legs. Patient was unarousable for 10 minutes according to sister. No previous history of atrial fib. Onset/Timin -: Hour(s) - [place] Coma Scale Eye Response: (4) Open spontaneously Motor Response: (6) Obeys commands Verbal Response: (5) Oriented Iván Total: 15 - Related Data Home Medications Medication Instructions Recorded Confirmed Last Taken Aspirin Chewable 81 mg PO DAILY 12/18/17 12/18/17 Unknown Dutasteride 0.5 mg PO DAILY 12/18/17 12/18/17 Unknown Meloxicam 15 mg PO DAILY 12/18/17 12/18/17 Unknown Previous Rx's Medication Instructions Recorded Insulin Aspart [Novolog Flexpen] 1 unit SQ QIDACHS ml 11/11/17 Insulin Detemir [Levemir Flextouch] 32 unit SQ BID syringe 11/11/17 Allergies Allergy/AdvReac Type Severity Reaction Status Date / Time No Known Drug Allergies Allergy Verified 12/18/17 01:39 Travel Screening - Travel/Exposure Within Last 30 Days Have you traveled within the last 30 days?: No - Travel/Exposure Within Last Year Have you traveled outside the [place] in the last year?: No - Additonal Travel Details Have you been exposed to anyone with a communicable illness?: No - Travel Symptoms Symptom Screening: None Review of Systems Reviewed: No additional complaints except as noted below Constitutional: Reports: As per HPI. Denies: Chills, Fever, Malaise, Night sweats, Weakness, Weight change Eyes: Reports: As per HPI. Denies: Eye discharge, Eye pain, Photophobia, Vision change ENT: Reports: As per HPI. Denies: Congestion, Dental pain, Ear pain, Epistaxis , Hearing loss, Throat pain Respiratory: Reports: As per HPI. Denies: Cough, Dyspnea, Hemoptysis, Stridor, Wheezes Cardiovascular: Reports: As per HPI, Arrhythmia. Denies: Chest pain, Dyspnea on exertion, Edema, Murmurs, Orthopnea, Palpitations, Paroxysmal nocturnal dyspnea, Rheumatic Fever, Syncope Endocrine: Reports: As per HPI. Denies: Fatigue, Heat or cold intolerance, Polydipsia, Polyuria Gastrointestinal: Reports: As per HPI. Denies: Abdominal pain, Constipation, Diarrhea, Hematemesis, Hematochezia, Melena, Nausea, Vomiting Genitourinary: Reports: As per HPI. Denies: Dysuria, Frequency, Hematuria, Incontinence, Retention, Testicular pain, Testicular mass, Urgency Musculoskeletal: Reports: As per HPI. Denies: Arthralgia, Back pain, Gout, Joint swelling, Myalgia, Neck pain Skin: Reports: As per HPI. Denies: Bruising, Change in color, Change in hair/ nails, Lesions, Pruritus, Rash Neurological: Reports: As per HPI. Denies: Abnormal gait, Confusion, Headache, Numbness, Paresthesias, Seizure, Tingling, Tremors, Vertigo, Weakness Psychiatric: Reports: As per HPI. Denies: Anxiety, Auditory hallucinations, Depression, Homicidal thoughts, Suicidal thoughts, Visual hallucinations Hematological/Lymphatic: Reports: As per HPI. Denies: Anemia, Blood Clots, Easy bleeding, Easy bruising, Swollen glands Past Medical History - SOCIAL HISTORY Smoking Status: Never smoker Alcohol Use: None Drug Use: None - RESPIRATORY Hx Respiratory Disorders: No - CARDIOVASCULAR Hx Cardio Disorders: Yes Hx Abnormal EKG: No Hx Cardiac Cath: No Hx Chest Pain: No Hx CHF: No Hx Deep Vein Thrombosis: No Hx Edema: No Hx Heart Attack: No Hx Hypertension: Yes Hx Hypotension: No Hx Irregular Heartbeat: No Hx Palpitations: No Hx Pacemaker/Defib: No Hx Vascular Disease: No - NEURO Hx Neuro Disorders: Yes Hx Seizures: No - GI Hx GI Disorders: Yes Hx Abdominal Pain: No Hx Celiac Disease: No Hx Crohn's Disease: No Hx Diverticulitis: No Hx GI Bleed: No Hx Reflux: No Hx Hepatitis/Jaundice: No Hx Hiatal Hernia: No Hx Irritable Bowel: No Hx Liver Disease: No Hx Nausea/Vomiting: No Hx Obstructive Bowel: No Hx Pancreatitis: No Hx Rectal Bleeding: No Hx Ulcer: No Hx Wt Loss/Wt Gain: No Hx of Polyps: No Comment:: Chronic constipation - Hx Genitourinary Disorders: Yes Hx Bladder Problem: Yes Hx Dialysis: No Hx Kidney Stones: No Hx Prostate Problems: Yes Comment:: INDWELLING CATH - ENDOCRINE Hx Endocrine Disorders: Yes Hx Diabetes: Yes (IDDM) - MUSCULOSKELETAL Hx Musculoskeletal Disorders: No - PSYCH Hx Psych Problems: No - HEMATOLOGY/ONCOLOGY Hx Hematology/Oncology Disorders: No Family Medical History Any Significant Family History?: No Hx Cancer: Father Hx Stroke: Mother Physical Exam - General General Appearance: Alert, Oriented x3, Cooperative, No acute distress - Head Head exam: Normal inspection - Eye Eye exam: Normal appearance, PERRL Pupils: Normal accommodation - ENT ENT exam: Normal exam, Mucous membranes moist, Normal external ear exam, Normal orophraynx, TM's normal bilaterally Ear exam: Normal external inspection. negative: External canal tenderness Nasal Exam: Normal inspection. negative: Discharge, Sinus tenderness Mouth exam: Normal external inspection, Tongue normal Teeth exam: Normal inspection. negative: Dental caries Throat exam: Normal inspection. negative: Tonsillar erythema, Tonsillar exudate - Neck Neck exam: Normal inspection, Full ROM. negative: Tenderness - Respiratory Respiratory exam: Normal lung sounds bilaterally. negative: Respiratory distress - Cardiovascular Cardiovascular Exam: Tachycardia - GI/Abdominal GI/Abdominal exam: Soft, Normal bowel sounds. negative: Tenderness - Rectal Rectal exam: Deferred - exam: Deferred - Extremities Extremities exam: Normal inspection, Full ROM, Normal capillary refill. negative: Tenderness - Back Back exam: Reports: Normal inspection, Full ROM. Denies: Muscle spasm, Rash noted, Tenderness - Neurological Neurological exam: Alert, Normal gait, Oriented X3, Reflexes normal - Psychiatric Psychiatric exam: Normal affect, Normal mood - Skin Skin exam: Dry, Intact, Normal color, Warm Course Vital Signs 12/18/17 01:39 Temperature 98.7 F Pulse Rate 95 H Respiratory 20 Rate Blood Pressure 139/78 Pulse Ox 97 - Reevaluation(s) Reevaluation #1: discussed case with Dr. Larson and he accepted the transfer. Will transfer to [facility] by ambulance 12/18/17 02:52 Medical Decision Making - Lab Data Result diagrams: 12/18/17 01:45 12/18/17 01:45 Disposition Clinical Impression: Atrial fibrillation with RVR, Elevated troponin, Blindness Diabetes mellitus Qualifiers: Diabetes mellitus type: type 1 Diabetes mellitus complication status: with unspecified complications Qualified Code(s): E10.8 - Type 1 diabetes mellitus with unspecified complications Disposition: Acute Care Hospital Transfer Condition: (2) Stable Time of Disposition: 02:58 Quality - Quality Measures Quality Measures: N/A - Blood Pressure Screening Does Patient Have Any of the Following: No Blood Pressure Classification: Pre-Hypertensive BP Reading Systolic Measurement: 128 Diastolic Measurement: 81 Screening for High Blood Pressure: < Pre-Hypertensive BP, F/U Documented > [ G8950] Pre-Hypertensive Follow-up Interventions: Referral to alternative/primary care provider.
[2017-12-18 02:07] LABS: HEMOGLOBIN 12.4 gm/dl (14.0-18.0); MEAN CELL VOLUME 91.1 fl (81-97); MEAN CORPUSCULAR HEMOGLOBIN 29.7 pg (27-33); MEAN CORPUSCULAR HGB CONC 32.6 g/dl (32-36); MEAN PLATELET VOLUME 11.2 fl (7.4-10.4); PLATELET COUNT 221 K/uL (130-400); RED BLOOD COUNT 4.17 M/uL (4.40-5.70); RED CELL DISTRIBUTION WIDTH 13.8 % (11.5-14.5); WHITE BLOOD COUNT W/O DIFF 8.8 K/uL (4.2-12.2)
[2017-12-18 02:17] LABS: BLOOD UREA NITROGEN 23 mg/dL (8-23); CREATININE 0.9 mg/dL (0.7-1.2); EST GLOMERULAR FILTRATION RATE > 60 mL/min
[2017-12-18 02:20] LABS: GLUCOSE,RANDOM 213 mg/dL (74-109)
[2017-12-18] MEDS ORDERED: HEPARIN SODIUM 1000 UNIT/1 ML 10ML VIAL IVP ONE (02:47)
[2017-12-18] MEDS ORDERED: HEPARIN SODIUM/D5W 25,000 UNITS/500 ML BAG IV SCH (03:00)
--- NOTE | 2017-12-20 07:12 | RADIOLOGY REPORT ---
DATE: 12/18/2017. EXAM: SINGLE AP PORTABLE OF THE CHEST. HISTORY: THE PATIENT HAS ATRIAL FIBRILLATION WITH A FAST VENTRICULAR RESPONSE. TECHNIQUE: Single AP portable view of the chest was provided. COMPARISON: A comparison study dated 11/18/2017. FINDINGS: The cardiomediastinal silhouette is within normal limits for size and contour. The priscila appear unremarkable. There is no radiographic evidence of a focal infiltrate, pleural effusion, or pneumothorax. IMPRESSION: NO RADIOGRAPHIC EVIDENCE OF AN ACUTE INTRATHORACIC PROCESS. JOB NUMBER: [id number] MTDD
== END 2017-12-18 03:36 | disposition short-term general hospital (02) ==
LOC: ER 01:26
DX: I48.0 Paroxysmal atrial fibrillation (principal); R79.89 Other specified abnormal findings of blood chemistry; R41.82 Altered mental status, unspecified; I10 Essential (primary) hypertension; E11.9 Type 2 diabetes mellitus without complications; Z79.4 Long term (current) use of insulin
CPT/HCPCS: 71045; 80048; 84484; 85027; 85730; 93005; 93010; 96365; 96375; 96376; 99285

== ENCOUNTER 2018-08-14 13:54 | Emergency (ER) | payer MEDICARE, MEDICAID ==
--- NOTE | 2018-08-14 14:16 | Emergency Department Record ---
History of Present Illness - General Chief complaint: Male Urogenital Problem Stated complaint: CANT GET CATHETER BACK IN,UTI Time Seen by Provider: 08/14/18 14:05 Source: Patient, Family Mode of Arrival: Wheelchair Limitations: No limitations - History of Present Illness Initial comments: The patient is here due to a 2-3 day hx of weakness and fatigue. He did fall out of his chair yesterday at home but did not hit his head. He has been unable to ambulate normally today with his walker due to the weakness. His PCP did order a UA for the weakness so the patient's visiting nurse did try to change the snider 2 hours ago but was unable to put it back in. The patient denies any LACEY, CP, SOB, AP, vomiting, or ALLAN. MD Complaint: Other Onset/Timin -: Days(s) Quality: Aching, Burning - Related Data Previous Rx's Medication Instructions Recorded Amoxicillin/Potassium Clav 1 each PO BID #20 tablet 08/14/18 [Augmentin 875Mg/125Mg] Allergies Allergy/AdvReac Type Severity Reaction Status Date / Time No Known Drug Allergies Allergy Unverified 07/20/18 09:46 Travel Screening - Travel/Exposure Within Last 30 Days Have you traveled within the last 30 days?: No - Travel/Exposure Within Last Year Have you traveled outside the [place] in the last year?: No - Additonal Travel Details Have you been exposed to anyone with a communicable illness?: No - Travel Symptoms Symptom Screening: None Review of Systems Constitutional: Reports: Malaise. Denies: Chills, Fever Eyes: Denies: Eye discharge ENT: Denies: Congestion Respiratory: Denies: Dyspnea Cardiovascular: Denies: Chest pain Endocrine: Reports: Fatigue Gastrointestinal: Denies: Nausea Genitourinary: Denies: Dysuria Musculoskeletal: Denies: Arthralgia Skin: Denies: Bruising Past Medical History - SOCIAL HISTORY Smoking Status: Never smoker Alcohol Use: None Drug Use: None - RESPIRATORY Hx Respiratory Disorders: No - CARDIOVASCULAR Hx Cardio Disorders: Yes Hx Abnormal EKG: No Hx Cardiac Cath: No Hx Chest Pain: No Hx CHF: No Hx Deep Vein Thrombosis: No Hx Edema: No Hx Heart Attack: No Hx Hypertension: Yes Hx Hypotension: No Hx Irregular Heartbeat: No Hx Palpitations: No Hx Pacemaker/Defib: No Hx Vascular Disease: No - NEURO Hx Neuro Disorders: Yes Hx Seizures: No Comment:: legally blind - GI Hx GI Disorders: Yes Hx Abdominal Pain: No Hx Celiac Disease: No Hx Crohn's Disease: No Hx Diverticulitis: No Hx GI Bleed: No Hx Reflux: No Hx Hepatitis/Jaundice: No Hx Hiatal Hernia: No Hx Irritable Bowel: No Hx Liver Disease: No Hx Nausea/Vomiting: No Hx Obstructive Bowel: No Hx Pancreatitis: No Hx Rectal Bleeding: No Hx Ulcer: No Hx Wt Loss/Wt Gain: No Hx of Polyps: No Comment:: Chronic constipation - Hx Genitourinary Disorders: Yes Hx Bladder Problem: Yes Hx Dialysis: No Hx Kidney Stones: No Hx Prostate Problems: Yes Comment:: INDWELLING CATH - ENDOCRINE Hx Endocrine Disorders: Yes Hx Diabetes: Yes (IDDM brittle) - MUSCULOSKELETAL Hx Musculoskeletal Disorders: No - PSYCH Hx Psych Problems: No - HEMATOLOGY/ONCOLOGY Hx Hematology/Oncology Disorders: No Family Medical History Any Significant Family History?: Yes Hx Cancer: Father Hx Stroke: Mother Physical Exam - General General Appearance: Alert, Cooperative, No acute distress - Head Head exam: Atraumatic, Normocephalic, Normal inspection Head exam detail: negative: Abrasion - Eye Eye exam: negative: Periorbital swelling, Periorbital tenderness - ENT Throat exam: Normal inspection. negative: Tonsillar erythema, Tonsillar exudate - Neck Neck exam: Normal inspection, Full ROM. negative: Tenderness (There is no Cspine tenderness.) - Respiratory Respiratory exam: Normal lung sounds bilaterally. negative: Chest wall tenderness, Respiratory distress - Cardiovascular Cardiovascular Exam: Regular rate, Normal rhythm, Normal heart sounds. negative: Diastolic murmur, Systolic murmur - GI/Abdominal GI/Abdominal exam: Soft, Normal bowel sounds. negative: Tenderness - Extremities Extremities exam: Normal inspection, Full ROM, Normal capillary refill. negative: Tenderness - Back Back exam: Reports: Normal inspection - Neurological Neurological exam: Alert. negative: Motor sensory deficit - Psychiatric Psychiatric exam: negative: Anxious - Skin Skin exam: negative: Rash Course Vital Signs 08/14/18 13:58 Temperature 98.5 F Pulse Rate 69 Respiratory 18 Rate Blood Pressure 158/76 Pulse Ox 99 - Reevaluation(s) Reevaluation #1: The patient is feeling much better at this time. He is NOT feeling weak now and would like to go home. His caregiver does feel he will be safe for home. We will place the patient on Augmentin for the sinusitis and have him F/U with his PCP later this week. 08/14/18 15:42 Medical Decision Making - Data Complexity MDM Data: Labs Ordered and/or Reviewed, X-Ray Ordered and/or Reviewed, EKG Ordered and/or Reviewed - Lab Data Result diagrams: 08/14/18 14:35 08/14/18 14:35 - EKG Data -: EKG Interpreted by Me EKG: No Acute Changes, Unchanged From Previous - Radiology Data Radiology results: Report reviewed (Head CT: neg for any acute intracranial issues, acute R maxillary sinusitis.) Disposition Disposition: Discharge Clinical Impression: Physical deconditioning Disposition: Home, Self-Care Condition: (2) Stable Instructions: Weakness (ED) Additional Instructions: Please continue your regular medicines and take the Augmentin as directed. Please see your family doctor for recheck later this week and return to the ER for any worsening symptoms. Prescriptions: Amoxicillin/Potassium Clav [Augmentin 875Mg/125Mg] 1 each PO BID #20 tablet Forms: Patient Portal Access Time of Disposition: 15:44 Quality - Quality Measures Quality Measures: N/A - Blood Pressure Screening View Details: Yes Does Patient Have Any of the Following: Active Dx of HTN Blood Pressure Classification: Hypertensive Reading Systolic Measurement: 158 Diastolic Measurement: 76 Screening for High Blood Pressure: Patient Exclusion, Hx of HTN [G9744]
[2018-08-14] MEDS: LIDOCAINE UROJECT 10 ML APPL MM ONE (14:35)
[2018-08-14 14:41] LABS: HEMATOCRIT 35.5 % (42.0-52.0); HEMOGLOBIN 11.6 gm/dl (14.0-18.0); MEAN CELL VOLUME 90.1 fl (81-97); MEAN CORPUSCULAR HEMOGLOBIN 29.4 pg (27-33); MEAN CORPUSCULAR HGB CONC 32.7 g/dl (32-36); MEAN PLATELET VOLUME 10.3 fl (7.4-10.4); PLATELET COUNT 187 K/uL (130-400); RED BLOOD COUNT 3.94 M/uL (4.40-5.70); RED CELL DISTRIBUTION WIDTH 13.5 % (11.5-14.5); WHITE BLOOD COUNT W/O DIFF 11.1 K/uL (4.2-12.2)
[2018-08-14 14:42] LABS: URINE APPEARANCE CLEAR; URINE BILIRUBIN NEGATIVE (NEGATIVE); URINE BLOOD MODERATE (NEGATIVE); URINE COLOR YELLOW; URINE GLUCOSE (UA) NEGATIVE (NEGATIVE); URINE KETONE NEGATIVE (NEGATIVE); URINE LEUKOCYTE ESTERASE MODERATE (NEGATIVE); URINE NITRITE NEGATIVE (NEGATIVE); URINE UROBILINOGEN 0.2 E.U./dL (0.20 - 1.00)
[2018-08-14 14:52] LABS: URINE BACTERIA 2+; URINE EPITHELIAL CELLS NONE SEEN (FEW); URINE WBC 36 - 50 (0-2/hpf)
[2018-08-14 14:56] LABS: BLOOD UREA NITROGEN 19 mg/dL (8-23); EST GLOMERULAR FILTRATION RATE > 60 mL/min
[2018-08-14 14:57] LABS: TOTAL PROTEIN 6.2 g/dL (6.6-8.7)
[2018-08-14 14:59] LABS: GLUCOSE,RANDOM 192 mg/dL (74-109)
[2018-08-14 15:01] LABS: ALB/GLOB RATIO 1.5 (1.1-1.8); ALBUMIN 3.7 g/dL (4.0-5.0); ALT/SGPT 31 U/L (<41); AST/SGOT 20 U/L (10.0-50.0); INR 1.1; PARTIAL THROMBOPLASTIN TIME 29.7 SECONDS (24.5-39.1); PROTHROMBIN TIME (PATIENT) 10.8 SECONDS (9.5-12.1)
[2018-08-14 15:02] LABS: ALKALINE PHOSPHATASE 109 U/L (40-129)
[2018-08-14] MEDS: 0.9 % SODIUM CHLORIDE 1,000 ML BAG IV ONE (15:15)
--- NOTE | 2018-08-16 09:28 | CT SCAN REPORT ---
EXAM: CT SCAN OF THE HEAD WITHOUT CONTRAST HISTORY: INCREASING WEAKNESS AND CONFUSION FOR THE PAST WEEK. PREVIOUS HISTORY OF BRAIN SURGERY FOR AN ABSCESS IN 1976. TECHNIQUE: Standard CT imaging of the head was performed in the axial plane without contrast. Additional coronal and sagittal reformatted images were also performed. Comparison: 10/30/17. FINDINGS: There is mild generalized atrophy. A craniotomy defect is noted within the right frontal temporal region. A peripherally calcified extraaxial mass like area is present deep to the craniotomy defect. This is unchanged from the previous examination. There is an encephalomalacia within the adjacent right frontal lobe. This is also stable. Mild chronic small vessel ischemic changes are present within the periventricular and subcortical white matter at both cerebral hemispheres. There is a tiny old lacunar infarct within the left thalamus. There is no intraaxial mass, mass effect, hemorrhage, visible acute infarct, or abnormal extraaxial fluid. The skull is intact. A left ocular prosthesis is present. The right orbit appears stable. Calcification is present within the right ocular globe and is unchanged. There is an air fluid level and mild mucosal thickening within the right maxillary sinus consistent with sinusitis. Minor mucosal thickening is present within the ethmoid sinuses. There is trace fluid within the right mastoid air cells. The left mastoid air cells and bilateral middle ear cavities are clear. IMPRESSION: 1. STABLE POST SURGICAL CHANGES WITHIN THE RIGHT FRONTAL REGION. 2. MILD ATROPHY AND CHRONIC SMALL VESSEL ISCHEMIC CHANGES. 3. NO ACUTE INTRACRANIAL ABNORMALITY. 4. RIGHT MAXILLARY SINUSITIS. JOB NUMBER: [id number] MTDD
== END 2018-08-14 15:52 | disposition home or self-care (01) ==
LOC: ER 13:54
DX: R53.81 Other malaise (principal); E10.9 Type 1 diabetes mellitus without complications; J01.00 Acute maxillary sinusitis, unspecified; I10 Essential (primary) hypertension
CPT/HCPCS: 70450; 80053; 81001; 84443; 84484; 85027; 85610; 85730; 93005; 93010; 99284; J7030

== ENCOUNTER 2018-10-11 11:39 | Emergency (ER) | payer MEDICARE, MEDICAID ==
[2018-10-11] MEDS ORDERED: 0.9 % SODIUM CHLORIDE 1,000 ML BAG IV ONE (12:08)
[2018-10-11] MEDS ORDERED: HUMULIN R 100 UNIT/ML VIAL IV ONE ×2 (12:10→12:44)
[2018-10-11] MEDS ORDERED: LIDOCAINE UROJECT 10 ML APPL MM ONE (12:17)
[2018-10-11 12:27] LABS: HEMATOCRIT 38.2 % (42.0-52.0); HEMOGLOBIN 12.5 gm/dl (14.0-18.0); MEAN CELL VOLUME 89.5 fl (81-97); MEAN CORPUSCULAR HEMOGLOBIN 29.2 pg (27-33); MEAN CORPUSCULAR HGB CONC 32.7 g/dl (32-36); MEAN PLATELET VOLUME 11.2 fl (7.4-10.4); PLATELET COUNT 198 K/uL (130-400); RED BLOOD COUNT 4.27 M/uL (4.40-5.70); RED CELL DISTRIBUTION WIDTH 14.5 % (11.5-14.5); WHITE BLOOD COUNT W/O DIFF 13.7 K/uL (4.2-12.2)
--- NOTE | 2018-10-11 12:28 | Emergency Department Record ---
History of Present Illness - General Chief complaint: Hypergylcemia Stated complaint: HIGH BLOOD SUGAR Time Seen by Provider: 10/11/18 12:07 Source: Patient, RN notes reviewed Mode of Arrival: Wheelchair - History of Present Illness Initial comments: High glucose and here with caregiver Carisa and he lives at home. [facility]. Aggitated and blood in the urine and aggitated. Nausea and no vomiting and he is drinking and eating. Bladder is distended and not much urine in his snider and he is on seizure medication. Last seizure dec 2017 DM type one , hypothyroidism, [facility] Brain surgery for an abscess and not working since about 2 years after brain surgery at 27 years of age.Bladder is painful on palpation of the suprapubic area of abd. Patient answers questions appropriately. Patient knows his medical history. PMH atrial fib and on eliquis Onset/Timin -: Days(s) Improves with: None Worsens with: None - [place] Coma Scale Eye Response: (4) Open spontaneously Motor Response: (6) Obeys commands Verbal Response: (5) Oriented Iván Total: 15 - Related Data Previous Rx's Medication Instructions Recorded Ciprofloxacin HCl [Cipro] 500 mg PO Q12HR #14 tablet 10/11/18 Allergies Allergy/AdvReac Type Severity Reaction Status Date / Time No Known Drug Allergies Allergy Verified 10/11/18 12:06 Travel Screening - Travel/Exposure Within Last 30 Days Have you traveled within the last 30 days?: No - Travel/Exposure Within Last Year Have you traveled outside the [place] in the last year?: No - Additonal Travel Details Have you been exposed to anyone with a communicable illness?: No Review of Systems Reviewed: No additional complaints except as noted below Constitutional: Reports: As per HPI. Denies: Chills, Fever, Malaise, Night swea ts, Weakness, Weight change Eyes: Reports: As per HPI. Denies: Eye discharge, Eye pain, Photophobia, Vision change ENT: Reports: As per HPI. Denies: Congestion, Dental pain, Ear pain, Epistaxis, Hearing loss, Throat pain Respiratory: Reports: As per HPI. Denies: Cough, Dyspnea, Hemoptysis, Stridor, Wheezes Cardiovascular: Reports: As per HPI. Denies: Arrhythmia, Chest pain, Dyspnea on exertion, Edema, Murmurs, Orthopnea, Palpitations, Paroxysmal nocturnal dyspnea, Rheumatic Fever, Syncope Endocrine: Reports: As per HPI. Denies: Fatigue, Heat or cold intolerance, P olydipsia, Polyuria Gastrointestinal: Reports: As per HPI. Denies: Abdominal pain, Constipation, Diarrhea, Hematemesis, Hematochezia, Melena, Nausea, Vomiting Genitourinary: Reports: As per HPI. Denies: Dysuria, Frequency, Hematuria, Incontinence, Retention, Testicular pain, Testicular mass, Urgency Musculoskeletal: Reports: As per HPI. Denies: Arthralgia, Back pain, Gout, Joint swelling, Myalgia, Neck pain Skin: Reports: As per HPI. Denies: Bruising, Change in color, Change in hair/nails, Lesions, Pruritus, Rash Neurological: Reports: As per HPI. Denies: Abnormal gait, Confusion, Headache, Numbness, Paresthesias, Seizure, Tingling, Tremors, Vertigo, Weakness Psychiatric: Reports: As per HPI. Denies: Anxiety, Auditory hallucinations, Depression, Homicidal thoughts, Suicidal thoughts, Visual hallucinations Hematological/Lymphatic: Reports: As per HPI. Denies: Anemia, Blood Clots, Easy bleeding, Easy bruising, Swollen glands Past Medical History - SOCIAL HISTORY Smoking Status: Never smoker Alcohol Use: None Drug Use: None - RESPIRATORY Hx Respiratory Disorders: No - CARDIOVASCULAR Hx Cardio Disorders: Yes Hx Abnormal EKG: No Hx Cardiac Cath: No Hx Chest Pain: No Hx CHF: No Hx Deep Vein Thrombosis: No Hx Edema: No Hx Heart Attack: No Hx Hypertension: Yes Hx Hypotension: No Hx Irregular Heartbeat: No Hx Palpitations: No Hx Pacemaker/Defib: No Hx Vascular Disease: No - NEURO Hx Neuro Disorders: Yes Hx Seizures: No Comment:: legally blind - GI Hx GI Disorders: Yes Hx Abdominal Pain: No Hx Celiac Disease: No Hx Crohn's Disease: No Hx Diverticulitis: No Hx GI Bleed: No Hx Reflux: No Hx Hepatitis/Jaundice: No Hx Hiatal Hernia: No Hx Irritable Bowel: No Hx Liver Disease: No Hx Nausea/Vomiting: No Hx Obstructive Bowel: No Hx Pancreatitis: No Hx Rectal Bleeding: No Hx Ulcer: No Hx Wt Loss/Wt Gain: No Hx of Polyps: No Comment:: Chronic constipation - Hx Genitourinary Disorders: Yes Hx Bladder Problem: Yes Hx Dialysis: No Hx Kidney Stones: No Hx Prostate Problems: Yes Comment:: INDWELLING CATH - ENDOCRINE Hx Endocrine Disorders: Yes Hx Diabetes: Yes (IDDM brittle) - MUSCULOSKELETAL Hx Musculoskeletal Disorders: No - PSYCH Hx Psych Problems: No - HEMATOLOGY/ONCOLOGY Hx Hematology/Oncology Disorders: No Family Medical History Any Significant Family History?: No Hx Cancer: Father Hx Stroke: Mother Physical Exam - General General Appearance: Alert, Oriented x3, Cooperative, No acute distress - Head Head exam: Normal inspection - Eye Eye exam: Normal appearance, PERRL Pupils: Normal accommodation - ENT ENT exam: Normal exam, Mucous membranes moist, Normal external ear exam, Normal orophraynx, TM's normal bilaterally Ear exam: Normal external inspection. negative: External canal tenderness Nasal Exam: Normal inspection. negative: Discharge, Sinus tenderness Mouth exam: Normal external inspection, Tongue normal Teeth exam: Normal inspection. negative: Dental caries Throat exam: Normal inspection. negative: Tonsillar erythema, Tonsillar exudate - Neck Neck exam: Normal inspection, Full ROM. negative: Tenderness - Respiratory Respiratory exam: Normal lung sounds bilaterally. negative: Respiratory distress - Cardiovascular Cardiovascular Exam: Regular rate, Normal rhythm, Normal heart sounds - GI/Abdominal GI/Abdominal exam: Soft, Normal bowel sounds. negative: Tenderness - Rectal Rectal exam: Deferred - exam: Deferred - Extremities Extremities exam: Normal inspection, Full ROM, Normal capillary refill. negative: Tenderness - Back Back exam: Reports: Normal inspection, Full ROM. Denies: Muscle spasm, Rash noted, Tenderness - Neurological Neurological exam: Alert, Normal gait, Oriented X3, Reflexes normal - Psychiatric Psychiatric exam: Normal affect, Normal mood - Skin Skin exam: Dry, Intact, Normal color, Warm Course Vital Signs 10/11/18 11:47 Temperature 98.0 F Pulse Rate 85 Respiratory 16 Rate Blood Pressure 140/77 Pulse Ox 96 - Reevaluation(s) Reevaluation #1: snider changed and he 1100 ml or urine in his bladder, snider was not working. clear and some blood present when snider placed. Patient has a hypospadius of the glans 10/11/18 13:31 Medical Decision Making - Lab Data Result diagrams: 10/11/18 12:17 10/11/18 12:17 Lab Results 10/11/18 Range/Units 12:18 POC Glucose 404 H (70-110) mg/dL Disposition Clinical Impression: Urinary retention UTI (urinary tract infection) Qualifiers: Urinary tract infection type: acute cystitis Hematuria presence: with hematuria Qualified Code(s): N30.01 - Acute cystitis with hematuria Disposition: Home, Self-Care Condition: (1) Good Instructions: Urinary Retention in Men (ED) Additional Instructions: follow up with family Dr in one week Prescriptions: Ciprofloxacin HCl [Cipro] 500 mg PO Q12HR #14 tablet Forms: Patient Portal Access Time of Disposition: 13:32 Quality - Quality Measures Quality Measures: N/A - Blood Pressure Screening Does Patient Have Any of the Following: No Blood Pressure Classification: Hypertensive Reading Systolic Measurement: 140 Diastolic Measurement: 77 Screening for High Blood Pressure: < Pre-Hypertensive BP, F/U Documented > [G8950] Pre-Hypertensive Follow-up Interventions: Referral to alternative/primary care provider.
[2018-10-11 12:32] LABS: BLOOD UREA NITROGEN 24 mg/dL (8-23); CREATININE 1.5 mg/dL (0.7-1.2); EST GLOMERULAR FILTRATION RATE 50 mL/min; LIPASE 11 U/L (13-60); TOTAL PROTEIN 7.1 g/dL (6.6-8.7)
[2018-10-11 12:34] LABS: GLUCOSE,RANDOM 401 mg/dL (74-109)
[2018-10-11 12:37] LABS: ALBUMIN 4.2 g/dL (4.0-5.0); ALKALINE PHOSPHATASE 124 U/L (40-129); ALT/SGPT 37 U/L (<41); AST/SGOT 27 U/L (10.0-50.0)
[2018-10-11 12:38] LABS: BILIRUBIN,DIRECT < 0.2 mg/dL (0-0.3)
[2018-10-11 12:44] LABS: ACETONE,SERUM NEGATIVE (NEGATIVE)
[2018-10-11 12:53] LABS: URINE APPEARANCE SL CLOUDY; URINE BILIRUBIN NEGATIVE (NEGATIVE); URINE BLOOD LARGE (NEGATIVE); URINE COLOR YELLOW; URINE KETONE NEGATIVE (NEGATIVE); URINE LEUKOCYTE ESTERASE SMALL (NEGATIVE); URINE NITRITE NEGATIVE (NEGATIVE); URINE PROTEIN TRACE (NEGATIVE); URINE UROBILINOGEN 0.2 E.U./dL (0.20 - 1.00)
[2018-10-11 13:11] LABS: URINE BACTERIA 4+; URINE EPITHELIAL CELLS NONE SEEN (FEW)
[2018-10-11] MEDS ORDERED: CIPROFLOXACIN HCL 500 MG TABLET PO ONE (13:17)
== END 2018-10-11 13:47 | disposition home or self-care (01) ==
LOC: ER 11:39
DX: N30.01 Acute cystitis with hematuria (principal); R33.8 Other retention of urine; R11.0 Nausea; E10.8 Type 1 diabetes mellitus with unspecified complications; Z79.4 Long term (current) use of insulin; I48.91 Unspecified atrial fibrillation; Z79.01 Long term (current) use of anticoagulants; E03.9 Hypothyroidism, unspecified
CPT/HCPCS: 36416; 80048; 80076; 81001; 82009; 82948; 83690; 85027; 96374; 99284; J7030

== ENCOUNTER 2019-01-05 06:15 | Day surgery (SDC) | payer MEDICARE, MEDICAID ==
[~2019-01-05 06:15] MED LIST: ACETAMINOPHEN 1,000 MG/100 ML BTL IVPB ONE; CEFAZOLIN 2 Gram 2 GM/50 ML BAG IVPB ONE
[2019-01-05] MEDS ORDERED: MIDAZOLAM HCL 2MG/2ML VIAL IV ONE (06:16)
[2019-01-05] MEDS ORDERED: FENTANYL PF 100MCG/2ML VIAL IV ONE (06:16)
[2019-01-05] MEDS ORDERED: PROPOFOL 10 MG/ML VIAL IV ONE (06:16)
[2019-01-05] MEDS ORDERED: LIDOCAINE 2% MDV (20MG/ML) 20ML VIAL IV ONE (06:16)
[2019-01-05 06:31] LABS: HEMOGLOBIN 13.2 gm/dl (14.0-18.0); MEAN CELL VOLUME 91.9 fl (81-97); MEAN CORPUSCULAR HGB CONC 32.2 g/dl (32-36); MEAN PLATELET VOLUME 11.2 fl (7.4-10.4); PLATELET COUNT 197 K/uL (130-400); RED BLOOD COUNT 4.46 M/uL (4.40-5.70); RED CELL DISTRIBUTION WIDTH 13.6 % (11.5-14.5); WHITE BLOOD COUNT W/O DIFF 12.2 K/uL (4.2-12.2)
[2019-01-05 06:32] LABS: MEAN CORPUSCULAR HEMOGLOBIN 29.5 pg (27-33)
[2019-01-05 06:42] LABS: CREATININE 1.4 mg/dL (0.7-1.2)
[2019-01-05 06:45] LABS: ABSOLUTE NEUTROPHIL COUNT 9.26; PLATELET ESTIMATE NORMAL (NORMAL)
[2019-01-05] MEDS ORDERED: NOVOLOG FLEXPEN (INSULIN ASPART) 100 UNITS/ML SQ ONE (07:18)
[2019-01-05] MEDS ORDERED: RINGERS SOLUTION,LACTATED 1,000 ML IV ONE ×2 (08:05→08:25)
[2019-01-05] MEDS ORDERED: LIDOCAINE 1% MPF 100MG/10ML STERILE-PAK AMPULE SQ ONE (08:15)
== END 2019-01-05 09:40 | disposition home health service (06) ==
LOC: SUR 06:15
PROVIDERS: ATTEND Urology
DX: R33.8 Other retention of urine (principal); I10 Essential (primary) hypertension; R56.9 Unspecified convulsions; I48.91 Unspecified atrial fibrillation; Z79.01 Long term (current) use of anticoagulants; E11.9 Type 2 diabetes mellitus without complications; Z79.4 Long term (current) use of insulin
CPT/HCPCS: 52341; 00910; 80048; 36416; 82948; 85027; J3010; J0690; J1815; J3490; J7120